=== PATIENT | male | born 1940 | race Caucasian/White ===

== ENCOUNTER 2017-03-04 16:07 | Emergency (ER) | payer MEDICARE ==
[2017-03-04] MEDS ORDERED: SODIUM CHLORIDE 0.9% 500 ML IV STA (17:02)
[2017-03-04] MEDS ORDERED: SODIUM CHLORIDE 0.9% 1,000 ML IV STA (17:02)
[2017-03-04] MEDS ORDERED: ACETAMINOPHEN IV (For NPO) 1,000 MG in EMPTY BAG 1 BAG IVPB STA (17:03)
[2017-03-04] MEDS ORDERED: cefTRIAXone 2,000 MG in SODIUM CHLORIDE 0.9% 100 ML IVPB STA (17:03)
[2017-03-04] MEDS ORDERED: KETOROLAC 30 MG/ML 1 ML VIAL IVP STA (17:03)
--- NOTE | 2017-03-04 17:04 | ED ---
General Adult HPI - General Chief complaint: Urogenital Stated complaint: Back Pain Time Seen by Provider: 03/04/17 16:59 Source: patient, RN notes reviewed, old records reviewed Mode of arrival: wheelchair - History of Present Illness Initial comments: This is a 76-year-old male who ER for evaluation postop fever. Patient recently had a bladder procedure for prostate cancer. Patient has had fever starting yesterday getting worse and today with back pain. The patient denies dysuria, denies abdominal pain. No nausea vomiting. No modifying factors for symptoms. - Related Data Home Medications Medication Instructions Recorded Confirmed Acetaminophen [Tylenol] 1,000 tab PO DAILY PRN 03/04/17 03/04/17 Alfuzosin HCl [Alfuzosin HCl ER] 10 mg PO DAILY 03/04/17 03/04/17 Aspirin [Adult Low Dose Aspirin EC] 81 mg PO DAILY 03/04/17 03/04/17 Atorvastatin [Lipitor] 40 mg PO DAILY 03/04/17 03/04/17 Carisoprodol [Soma] 350 mg PO DAILY PRN 03/04/17 03/04/17 Fluticasone/Salmeterol [Advair 1 inhalation PO RT-BID 03/04/17 03/04/17 250-50 Diskus] Magnesium Oxide [Magnesium] 250 mg PO DAILY 03/04/17 03/04/17 Naproxen Sodium [Aleve] 440 mg PO BID PRN 03/04/17 03/04/17 Pseudoephedrine HCl [Sudafed] 60 mg PO DAILY PRN 03/04/17 03/04/17 Turmeric-Curcumin 500mg 1 tab PO DAILY 03/04/17 03/04/17 Vits A,C,E/Lutein/Minerals 1 tab PO DAILY 03/04/17 03/04/17 [Ocuvite with Lutein Tablet] Previous Rx's Medication Instructions Recorded HYDROcodone/APAP 5-325MG [[place] 1 tab PO Q6HR PRN #20 tab 03/04/17 5-325] Ibuprofen [Motrin] 600 mg PO Q6HR PRN #30 tab 03/04/17 Allergies Allergy/AdvReac Type Severity Reaction Status Date / Time No Known Allergies Allergy Verified 03/04/17 17:42 Review of Systems ROS Statement: Those systems with pertinent positive or pertinent negative responses have been documented in the HPI. ROS Other: All systems not noted in ROS Statement are negative. Past Medical History Past Medical History: Asthma Additional Past Medical History / Comment(s): bladder cx, COPD, History of Any Multi-Drug Resistant Organisms: None Reported Additional Past Surgical History / Comment(s): carpal tunnel bilateral hands, Biopsy of bladder in january 2017 Past Psychological History: No Psychological Hx Reported Smoking Status: Never smoker Past Alcohol Use History: Occasional Past Drug Use History: None Reported General Exam General appearance: alert, in no apparent distress Head exam: Present: atraumatic, normocephalic, normal inspection Eye exam: Present: normal appearance, PERRL, EOMI. Absent: scleral icterus, conjunctival injection, periorbital swelling ENT exam: Present: normal exam, mucous membranes moist Neck exam: Present: normal inspection. Absent: tenderness, meningismus, lymphadenopathy Respiratory exam: Present: normal lung sounds bilaterally. Absent: respiratory distress, wheezes, rales, rhonchi, stridor Cardiovascular Exam: Present: regular rate, normal rhythm, normal heart sounds. Absent: systolic murmur, diastolic murmur, rubs, gallop, clicks GI/Abdominal exam: Present: soft, normal bowel sounds. Absent: distended, tenderness, guarding, rebound, rigid Extremities exam: Present: normal inspection, full ROM, normal capillary refill. Absent: tenderness, pedal edema, joint swelling, calf tenderness Back exam: Present: normal inspection Neurological exam: Present: alert, oriented X3, CN II-XII intact Psychiatric exam: Present: normal affect, normal mood Skin exam: Present: warm, dry, intact, normal color. Absent: rash Course Vital Signs 03/04/17 03/04/17 03/04/17 16:11 19:28 19:56 Temperature 101.9 F H 99.0 F 98.9 F Pulse Rate 77 77 76 Respiratory 20 18 20 Rate Blood Pressure 137/67 114/56 132/58 O2 Sat by Pulse 100 95 96 Oximetry - Reevaluation(s) Reevaluation #1: 03/04/17 20:[address] Shepard for urology, fever is normal for this procedure, okay for discharge Medical Decision Making - Medical Decision Making Started primarily ER for evaluation of fever, postprocedure fever, urine negative for infection patient can be discharged to - Lab Data Result diagrams: 03/04/17 17:25 06/04/17 17:25 Lab Results 03/04/17 03/04/17 03/04/17 Range/Units 17:25 17:25 17:25 WBC 14.2 H (3.8-10.6) k/uL RBC 4.67 (4.30-5.90) m/uL Hgb 14.3 (13.0-17.5) gm/dL Hct 43.3 (39.0-53.0) % MCV 92.9 (80.0-100.0) fL MCH 30.7 (25.0-35.0) pg MCHC 33.0 (31.0-37.0) g/dL RDW 13.2 (11.5-15.5) % Plt Count 222 (150-450) k/uL Neutrophils % 78 % Lymphocytes % 10 % Monocytes % 7 % Eosinophils % 1 % Basophils % 1 % Neutrophils # 11.1 H (1.3-7.7) k/uL Lymphocytes # 1.4 (1.0-4.8) k/uL Monocytes # 1.0 (0-1.0) k/uL Eosinophils # 0.2 (0-0.7) k/uL Basophils # 0.1 (0-0.2) k/uL PT (9.0-12.0) sec INR (<1.1) APTT (22.0-30.0) sec Sodium 142 (137-145) mmol/L Potassium 4.3 (3.5-5.1) mmol/L Chloride 107 (98-107) mmol/L Carbon Dioxide 26 (22-30) mmol/L Anion Gap 9 mmol/L BUN 18 (9-20) mg/dL Creatinine 0.67 (0.66-1.25) mg/dL Est GFR (MDRD) Af Amer >60 (>60 ml/min/1.73 sqM) Est GFR (MDRD) Non-Af >60 (>60 ml/min/1.73 sqM) Glucose 104 H (74-99) mg/dL Plasma Lactic Acid Neto (0.7-2.0) mmol/L Calcium 9.0 (8.4-10.2) mg/dL Phosphorus 2.5 (2.5-4.5) mg/dL Magnesium 1.9 (1.6-2.3) mg/dL Total Bilirubin 0.9 (0.2-1.3) mg/dL AST 25 (17-59) U/L ALT 23 (21-72) U/L Alkaline Phosphatase 124 (38-126) U/L Total Creatine Kinase 66 (55-170) U/L CK-MB (CK-2) 0.3 (0.0-2.4) ng/mL CK-MB (CK-2) Rel Index 0.5 Troponin I <0.012 (0.000-0.034) ng/mL Total Protein 7.0 (6.3-8.2) g/dL Albumin 3.8 (3.5-5.0) g/dL Urine Color Urine Appearance (Clear) Urine pH (5.0-8.0) Ur Specific [place] (1.001-1.035) Urine Protein (Negative) Urine Glucose (UA) (Negative) Urine Ketones (Negative) Urine Blood (Negative) Urine Nitrite (Negative) Urine Bilirubin (Negative) Urine Urobilinogen (<2.0) mg/dL Ur Leukocyte Esterase (Negative) 03/04/17 03/04/17 03/04/17 Range/Units 17:25 17:25 17:45 WBC (3.8-10.6) k/uL RBC (4.30-5.90) m/uL Hgb (13.0-17.5) gm/dL Hct (39.0-53.0) % MCV (80.0-100.0) fL MCH (25.0-35.0) pg MCHC (31.0-37.0) g/dL RDW (11.5-15.5) % Plt Count (150-450) k/uL Neutrophils % % Lymphocytes % % Monocytes % % Eosinophils % % Basophils % % Neutrophils # (1.3-7.7) k/uL Lymphocytes # (1.0-4.8) k/uL Monocytes # (0-1.0) k/uL Eosinophils # (0-0.7) k/uL Basophils # (0-0.2) k/uL PT 10.5 (9.0-12.0) sec INR 1.0 (<1.1) APTT 24.1 (22.0-30.0) sec Sodium (137-145) mmol/L Potassium (3.5-5.1) mmol/L Chloride (98-107) mmol/L Carbon Dioxide (22-30) mmol/L Anion Gap mmol/L BUN (9-20) mg/dL Creatinine (0.66-1.25) mg/dL Est GFR (MDRD) Af Amer (>60 ml/min/1.73 sqM) Est GFR (MDRD) Non-Af (>60 ml/min/1.73 sqM) Glucose (74-99) mg/dL Plasma Lactic Acid Neto 1.6 (0.7-2.0) mmol/L Calcium (8.4-10.2) mg/dL Phosphorus (2.5-4.5) mg/dL Magnesium (1.6-2.3) mg/dL Total Bilirubin (0.2-1.3) mg/dL AST (17-59) U/L ALT (21-72) U/L Alkaline Phosphatase (38-126) U/L Total Creatine Kinase (55-170) U/L CK-MB (CK-2) (0.0-2.4) ng/mL CK-MB (CK-2) Rel Index Troponin I (0.000-0.034) ng/mL Total Protein (6.3-8.2) g/dL Albumin (3.5-5.0) g/dL Urine Color Yellow Urine Appearance Clear (Clear) Urine pH 5.5 (5.0-8.0) Ur Specific [place] 1.016 (1.001-1.035) Urine Protein Negative (Negative) Urine Glucose (UA) Negative (Negative) Urine Ketones Negative (Negative) Urine Blood Negative (Negative) Urine Nitrite Negative (Negative) Urine Bilirubin Negative (Negative) Urine Urobilinogen <2.0 (<2.0) mg/dL Ur Leukocyte Esterase Negative (Negative) Disposition Clinical Impression: Fever Disposition: HOME SELF-CARE Condition: Good Instructions: Fever in Adults (ED) Prescriptions: HYDROcodone/APAP 5-325MG [[place] 5-325] 1 tab PO Q6HR PRN #20 tab PRN Reason: Pain Ibuprofen [Motrin] 600 mg PO Q6HR PRN #30 tab PRN Reason: Fever Referrals: Malcolm Her MD [Primary Care Provider] - 1-2 days
[2017-03-04 17:39] LABS: Basophils # (A) 0.1 k/uL (0-0.2); Basophils % (A) 1 %; CHCM 33.5; Eosinophils # (A) 0.2 k/uL (0-0.7); Eosinophils % (A) 1 %; HCT 43.3 % (39.0-53.0); HDW 2.84; HGB 14.3 gm/dL (13.0-17.5); Luc # (Auto) 0.47; Luc % (Auto) 3; Lymphocytes # (A) 1.4 k/uL (1.0-4.8); Lymphocytes % (A) 10 %; MCH 30.7 pg (25.0-35.0); MCV 92.9 fL (80.0-100.0); Mean Platelet Volume 6.8; Monocytes % (A) 7 %; Neutrophils # (A) 11.1 k/uL (1.3-7.7); Neutrophils % (A) 78 %; RBC 4.67 m/uL (4.30-5.90); RDW 13.2 % (11.5-15.5); WBC 14.2 k/uL (3.8-10.6); WBC (Perox) 13.37
[2017-03-04 17:47] LABS: Partial Thromboplastin Time 24.1 sec (22.0-30.0); Prothrombin Time 10.5 sec (9.0-12.0)
[2017-03-04 18:01] LABS: Appearance,Urine Clear (Clear); Bilirubin,Urine Negative (Negative); Glucose,Urine (UA) Negative (Negative); Ketones,Urine Negative (Negative); Leukocyte Esterase,Urine Negative (Negative); Nitrite,Urine Negative (Negative); PH, Urine 5.5 (5.0-8.0); Protein,Urine Negative (Negative); Specific Gravity,Urine 1.016 (1.001-1.035); UA Billing (MACRO vs. MICRO) CHEM; Urobilinogen,Urine <2.0 mg/dL (<2.0)
[2017-03-04 18:04] LABS: ALT 23 U/L (21-72); AST 25 U/L (17-59); Alkaline Phosphatase 124 U/L (38-126); Anion Gap 9 mmol/L; Blood Urea Nitrogen 18 mg/dL (9-20); Carbon Dioxide 26 mmol/L (22-30); Chloride 107 mmol/L (98-107); Glucose 104 mg/dL (74-99); Magnesium 1.9 mg/dL (1.6-2.3); Non-African American GFR(MDRD) >60 (>60 ml/min/1.73 sqM); Phosphorous 2.5 mg/dL (2.5-4.5); Potassium 4.3 mmol/L (3.5-5.1); Sodium 142 mmol/L (137-145); Total Bilirubin 0.9 mg/dL (0.2-1.3)
[2017-03-04 18:11] LABS: Creatine Kinase 66 U/L (55-170)
[2017-03-04 18:22] LABS: Creatine Kinase MB 0.3 ng/mL (0.0-2.4); Troponin I <0.012 ng/mL (0.000-0.034)
[2017-03-04] MEDS ORDERED: MORPHINE SULFATE 4 MG/ML SYRINGE IVP STA (19:52)
[2017-03-04 19:57] VITALS: BP 132/58; PULSE 76; RESP 20; TEMP 98.9
== END 2017-03-04 20:30 | disposition home or self-care (01) ==
LOC: EC 16:07
DX: R50.9 Fever, unspecified (principal); J44.9 Chronic obstructive pulmonary disease, unspecified; J45.909 Unspecified asthma, uncomplicated; Z98.890 Other specified postprocedural states; Z85.46 Personal history of malignant neoplasm of prostate; Z79.51 Long term (current) use of inhaled steroids; Z79.82 Long term (current) use of aspirin; Z79.899 Other long term (current) drug therapy
CPT/HCPCS: 99284; 96365; 96375 ×3; 36415; 93005; 80053; 82550; 82553; 83605; 83735; 84100; 84484; 85025; 85610; 85730; 81003; 87040; 87086; J2270; J0696; J1885; J0131; 87077; 87186

== ENCOUNTER 2017-03-07 12:07 | Inpatient (IN) | payer MEDICARE ==
[2017-03-07] MEDS ORDERED: RX INFO: IV CONTRAST WAS GIVEN 1 EACH MISC MISCELLANE PRN (12:44)
[2017-03-07] MEDS ORDERED: IV VANCOMYCIN PER PHARMACY 1 EACH MISC MISCELLANE PRN (12:46)
[2017-03-07 13:03] VITALS: BMI 24.5
[2017-03-07] MEDS ORDERED: VANCOMYCIN 2,000 MG in SODIUM CHLORIDE 0.9% 500 ML IVPB ONE (14:00)
[2017-03-07] MEDS: HYDROcodone/APAP 5-325MG 1 EACH TAB PO PRN ×3 (14:09→22:43)
[2017-03-07] MEDS: IBUPROFEN 600 MG TAB PO PRN ×2 (14:16→22:44)
[2017-03-07 16:11] LABS: ALT 23 U/L (21-72); AST 23 U/L (17-59); Alkaline Phosphatase 102 U/L (38-126); Anion Gap 9 mmol/L; Blood Urea Nitrogen 19 mg/dL (9-20); Calcium 8.8 mg/dL (8.4-10.2); Carbon Dioxide 25 mmol/L (22-30); Chloride 109 mmol/L (98-107); Glucose 92 mg/dL (74-99); Non-African American GFR(MDRD) >60 (>60 ml/min/1.73 sqM); Sodium 143 mmol/L (137-145); Total Bilirubin 0.8 mg/dL (0.2-1.3); Total Protein 5.9 g/dL (6.3-8.2)
[2017-03-07 16:25] LABS: CH 30.8; CHCM 34.1; HCT 35.1 % (39.0-53.0); HDW 3.07; HGB 12.1 gm/dL (13.0-17.5); MCH 31.2 pg (25.0-35.0); MCHC 34.4 g/dL (31.0-37.0); MCV 90.8 fL (80.0-100.0); Mean Platelet Volume 6.3; RBC 3.87 m/uL (4.30-5.90); RDW 12.9 % (11.5-15.5); WBC 13.7 k/uL (3.8-10.6); WBC (Perox) 13.57
[2017-03-07 17:06] LABS: Add Differential Manual Differential
[2017-03-07] MEDS: IOHEXOL 350 MG/ML 25 ML BOTTLE (ORAL USE) PO PRN ×2 (17:11→18:03)
[2017-03-07 17:21] LABS: Nucleated Red Blood Cells 0 /100 WBC (0-0); Total Cells Counted 100
[2017-03-07 17:22] LABS: Manual Review Performed; RBC Morphology Normal
[2017-03-07] MEDS: AMPICILLIN-SULBACTAM 3 GM in SODIUM CHLORIDE 0.9% 100 ML IVPB SCH (17:36)
[2017-03-07] MEDS: HEPARIN SODIUM,PORCINE 5,000 UNIT/ML 1 ML VIAL SQ SCH (17:39)
--- NOTE | 2017-03-07 19:19 | CT ---
EXAMINATION TYPE: CT abdomen pelvis w con DATE OF EXAM: 03/07/2017 COMPARISON: 01/25/2017 HISTORY: Low back pain and fever. CT DLP: 1664.20 mGycm Automated exposure control for dose reduction was used. TECHNIQUE: Helical acquisition of images was performed from the lung bases through the pelvis. CONTRAST: Performed with Oral Contrast and with IV Contrast, patient injected with 100 mL of Omnipaque 300. FINDINGS: There is some mild atelectasis at the right lung base. There is no pleural effusion. Liver spleen pancreas appear normal. Bile ducts are not dilated. Gallbladder is borderline dilated an d measures 4.6 cm. There is no adrenal mass. Kidneys show satisfactory contrast opacification. There is no hydronephrosi s. Ureters are not dilated. Bladder distends smoothly. There is no sign of a pelvic mass. I see no in testinal wall thickening. There are no dilated loops. There is no sign of a bowel obstruction. Abdomi nal aorta is atheromatous. I see no bony destructive process. There are spondylotic changes in the [place] mbar spine from L2 to S1. There is significant facet arthropathy in the lower lumbar spine with spina l stenosis at L3-4. IMPRESSION: ATHEROSCLEROTIC VASCULAR DISEASE. SPINAL STENOSIS AT L3-4. THERE IS INCREASED ATELECTASIS AT THE RIGHT LUNG BASE COMPARED TO OLD EXAM. GALLBLADDER IS LARGER JEFFERY N OLD EXAM that RAISES THE POSSIBILITY OF CHOLECYSTITIS.
[2017-03-07] MEDS: SYMBICORT 80-4.5 MCG INHALER INHALATION SCH (19:22)
--- NOTE | 2017-03-07 19:25 | CT ---
EXAMINATION TYPE: CT lumbar spine wo/w con DATE OF EXAM: 03/07/2017 COMPARISON: NONE HISTORY: Low back pain and fever. CT DLP: 1664.20 mGycm Automated exposure control for dose reduction was used. CONTRAST: CT scan of the lumbar is performed without and with IV Contrast, patient injected with mL of Omnipaqu e 300. Findings There is a mid lumbar levoscoliosis. There is 1 cm lateral subluxation of L3 to the right of L4. Ther e is no lumbar paraspinal mass. There is severe narrowing of the L4-5 disc space. There is moderate n arrowing of L to 3 L3-4 disc spaces. There is multilevel hypertrophic lumbar facet arthropathy. There is no compression fracture. There is mild relative spinal stenosis due to facet arthropathy and liga mentum flavum thickening at 2 3. There is a moderate least severe spinal stenosis at L3-4 due to sign ificant right-sided facet arthropathy. There is moderate lateral recess stenosis due to symmetric facet arthropathy at L4-5. The sacroiliac joints are intact. I see no focal bone destruction. IMPRESSION: Multilevel spondylosis and subluxation deformity seen at L3-4. There is significant L3-4 lumbar spina l stenosis. No compression fracture.
[2017-03-07 19:30] LABS: C Reactive Protein 127.1 mg/L (<10.0)
[2017-03-07] MEDS: CYCLOBENZAPRINE 5 MG TAB PO PRN (20:47)
[2017-03-07] MEDS: SENNOSIDES-DOCUSATE SODIUM 1 EACH TAB PO SCH (22:44)
[2017-03-08] MEDS ORDERED: VANCOMYCIN 1,500 MG in SODIUM CHLORIDE 0.9% 250 ML IVPB SCH ×2
[2017-03-08] MEDS: HEPARIN SODIUM,PORCINE 5,000 UNIT/ML 1 ML VIAL SQ SCH ×3 (00:14→15:24)
[2017-03-08] MEDS: AMPICILLIN-SULBACTAM 3 GM in SODIUM CHLORIDE 0.9% 100 ML IVPB SCH ×4 (00:15→18:00)
[2017-03-08] MEDS: ACETAMINOPHEN TAB 500 MG TAB PO PRN (00:25)
[2017-03-08] MEDS: HYDROcodone/APAP 5-325MG 1 EACH TAB PO PRN ×4 (06:37→18:01)
[2017-03-08] MEDS: TAMSULOSIN 0.4 MG CAP.ER.24H PO SCH (07:11)
[2017-03-08] MEDS: IBUPROFEN 600 MG TAB PO PRN ×3 (07:11→20:24)
[2017-03-08] MEDS: SENNOSIDES-DOCUSATE SODIUM 1 EACH TAB PO SCH (07:11)
[2017-03-08] MEDS: PANTOPRAZOLE 40 MG TABLET PO SCH (07:11)
--- NOTE | 2017-03-08 07:44 | HP ---
DATE OF ADMISSION: 03/07/2017 CHIEF COMPLAINT: Back pain. HISTORY OF PRESENT ILLNESS: This is a 76-year-old gentleman who was seen in the office yesterday for a follow-up from the emergency room. The patient had been seen in the emergency room on 03/04/2017 with complaint of significant back pain of one days' duration. No injury or trauma or any significant associated symptoms. He did have a temperature of 101 at the time. The patient had recently undergone intravascular BCG treatment for newly diagnosed carcinoma of the bladder. The patient's urine was unremarkable. The patient had mildly elevated white count of 14,000. The patient had a blood culture drawn at the time. The blood culture did come back positive. The patient, at the time of evaluation did not look sick at all except for the back pain. The patient had no specific bony tenderness and no CVA tenderness. His abdomen was soft on evaluation yesterday. The patient did complain of some edema of the lower legs. Otherwise, no other symptoms. In view of above and patient has not had any further fever. In view of above, the patient was sent in for repeat 2 blood cultures. The patient's two blood cultures were reported positive within 12 hours. In view of this, patient is admitted to the hospital for IV antibiotics. He was started on amoxicillin yesterday for enterococcus in the blood. At the time of evaluation on this admission, the patient looks fairly comfortable and not sick and afebrile. Temperature 97.2, pulse 78, respirations 16, blood pressure is 142/74. However, the patient's pain in the back is under fair control with the use of the above medications. The patient denies any other symptoms of chest pain, shortness of breath, cough. No nausea, vomiting. Mild abdominal pain left lower quadrant. He has not had a bowel movement. The patient denies any dysuria or hematuria. The patient back 02/05/2017 had a positive urine for enterococcus for which he was treated with the urologist. The patient prior to that was referred to the urologist for microscopic position hematuria. On evaluation, the patient's CAT scan was unremarkable and ultrasounds unremarkable. The patient did have cystoscopy which he was noted to have spot of malignancy. The patient in view of this was treated with the BCG infusion. Past medical history is primarily significant for history of hyperlipidemia, chronic obstructive lung disease, previous history of nephrolithiasis and age-related macular degeneration with no sequelae. PERSONAL HISTORY: The patient is an ex-smoker. Used to smoke a pack per day for 30 years. Alcohol about one glass of wine twice a week. SOCIAL HISTORY: Patient is and lives with her spouse. He is an industrial design engineer. He does exercise on a regular basis. PAST SURGICAL HISTORY: Significant tonsils and adenoids, bilateral carpal tunnel releases, vasectomy and bilateral cataract surgery. FAMILY MEDICAL HISTORY: Father at the age of 62. He has a history of coronary artery disease and had history of CVA. Mother at the age of 78. She had COPD, CHF, mother living, age 66, with history of coronary artery disease diagnosed age 51. The patient has a daughter living, age 48 who has bipolar disorder. REVIEW OF SYSTEMS: NEURO: Denies any headaches, dizziness. No double vision, blurred vision. No symptoms of TIA, syncope, seizures. PSYCH: No anxiety, depression. CARDIAC: No chest pain, angina, palpitation. RESPIRATORY: Mild chronic cough. No hemoptysis. No shortness of breath. GI: No nausea, vomiting, mild left lower abdominal discomfort, left lower abdominal discomfort and constipation. : Denies symptoms of dysuria, hematuria, urgency, frequency. EXTREMITIES: Denies pain. Does have edema in lower extremities. CONSTITUTIONAL: Temperature and chills about 4 days ago but since then. Denies any weight gain, weight loss. MUSCULOSKELETAL: Lower back pain. Does say that every time he has any kind of infection, he does get significant lower back pain. PHYSICAL EXAMINATION: Pleasant gentleman, at present in no distress does not appear acutely ill. Temperature is 97.2, pulse 78, respirations 16, blood pressure 142/74, pulse ox of 98%. HEENT: Normocephalic. Pupils reactive. Oral cavity moist. Neck reveals no JVD, carotid bruits. No thyromegaly. CHEST EXAMINATION: Mildly increased AP diameter. With mild generalized decreased air flow, occasional rhonchi. CARDIAC: Distant heart sounds. S1, S2 with no gallops. Systolic murmur 2 out of 6 left sternal border. ABDOMEN: Soft, no palpable masses. Bowel sounds normal. No organomegaly. No abdominal bruits. No CVA tenderness. Left lower quadrant tenderness. EXTREMITIES: No tenderness. Does have some mild edema. Distal lower extremities. Neurologically awake, alert, oriented x3 with well-coordinated movements. Laboratory assessment: White count 13.7, hemoglobin 12.1, platelet count 242. Electrolytes are normal. Alkaline phosphatase is normal. C-reactive protein, high at 127, albumin 3.1, prealbumin 9. The patient had a CAT scan of the abdomen done which primarily reveals no significant changes. CT of the spine reveals no evidence of C-spine shows multilevel spondylosis and fluctuation of deformity seen at L3, 4 and 5. No significant L3-4 lumbar spinal stenosis and no compression fracture and sacroiliac joints were intact. There does not seem to be any significant inflammation of the discs. The blood culture reports were positive for Enterococcus faecalis. ASSESSMENT: 1. Enterococcus faecalis bacteremia. 2. Back pain. 3. Chronic obstructive pulmonary disease 4. Hyperlipidemia, on medical therapy. Chest x-ray films available to me at present. The patient's medications have included: 1. Atorvastatin 40 mg daily. 2. Aleve 220 mg 1 daily. 3. Breo 100/25 1 puff daily. 4. Ocuvite 1 tablet daily. 5. Aspirin 81 mg daily. PLAN: Continue present medical regimen. The patient will be started on vancomycin. The patient has been seen by ID. The patient has taken 2 doses amoxicillin yesterday. The patient will also have an echocardiogram to rule out any endocarditis. The patient's general condition discussed with the patient and spouse. Prognosis remains guarded. Continue the patient medications of [place] and Flexeril. Prognosis remains guarded.
--- NOTE | 2017-03-08 08:16 | XR ---
EXAMINATION TYPE: XR chest 2V DATE OF EXAM: 03/07/2017 COMPARISON: 04/25/[address] 03/11/2014. HISTORY: 76-year-old male with fever TECHNIQUE: Frontal and lateral views FINDINGS: Heart is normal size. Aorta and pulmonary vasculature within normal limits. Some slight increased asy mmetric density in the right upper lobe and patchy right basilar opacity. Strandy left basilar atelec tasis. Degenerative changes right glenoid humeral joint. Nodular density projecting at the right midl florencio seems to be larger as compared to 04/25/2012 but is suspected to have represented a bone island gi sravan CT findings on 03/11/2014. A follow-up CT is recommended given apparent enlargement and to exclude underlying pulmonary nodule. Calcified granuloma at the right cardiophrenic angle. IMPRESSION: 1. Some asymmetric hazy density right upper lobe. Unable to exclude early infiltrate. Additional patc hy atelectasis/infiltrate at the right base and strandy atelectasis at the left base. 2. Follow-up CT is recommended to exclude a new/enlarging pulmonary nodule at the right midlung. Cameronil e a small nodule was seen on the 2012 radiograph, the CT of 03/20/2014 suggests that it may have repre sented a bone island. The present nodule is larger.
[2017-03-08] MEDS: CYCLOBENZAPRINE 5 MG TAB PO PRN ×2 (08:24→23:09)
[2017-03-08] MEDS: SYMBICORT 80-4.5 MCG INHALER INHALATION SCH ×2 (09:26→19:59)
--- NOTE | 2017-03-08 11:16 | P.CONS ---
History of Present Illness - Reason for Consult Consult date: 03/08/17 Enterococcus bacteremia - History of Present Illness This is a 76-year-old male who was recently diagnosed with bladder cancer. He has recently undergone a cystoscopy and following that he was on Cipro which he completed for urinary tract infection prior to a bladder biopsy. Following that patient states he was feeling well and did not have any symptoms of a urinary tract infection. He then started treatment with intravesicular BCG administration for treatment of bladder cancer with Dr. Woods. His treatment was last and patient states he has had some soreness since then but no real pain but started to run a fever on Sunday and was feeling sore all over. On Sunday, his temperature was [address] Mcnulty office and went into [facility] emergency center for evaluation. He had leukocytosis of 14.2 and his urinalysis was clear with nitrate and leukoesterase negative. Patient was provided with a liter of IV fluids, IV Tylenol, IV morphine and 1 dose of ceftriaxone IVPB. His fever had resolved and he was feeling improvement. He was discharged home to continue [place] and Motrin for pain and fever. Patient continued to have back pain and was not feeling well in general. On Sunday, he received a call from [facility] that a test was positive which he thought was his urine but it turned out to be a blood culture. He continued to have fever and was having difficulty sleeping due to pain in his hips in the center of his back. He called Dr. Woods on Sunday and also called Dr. Her who saw him in the office. He was then sent over to [facility] as a direct admission for enterococcus bacteremia. Patient was given 1 dose of vancomycin which is been changed to Unasyn. His temperature max has been 100.9 with leukocytosis of 13.7. CRP 127 and 3 albumin 9. Repeat blood culture has status received. Review of Systems All systems: negative Constitutional: Reports chills, Reports fatigue, Reports fever, Reports malaise , Reports weakness Eyes: denies blurred vision, denies pain Ears, nose, mouth and throat: Denies headache, Denies sore throat Cardiovascular: Denies chest pain, Denies shortness of breath Respiratory: Denies cough Gastrointestinal: Reports abdominal pain, Denies diarrhea, Denies nausea, Denies vomiting Genitourinary: Reports dysuria Musculoskeletal: Reports low back pain, Denies myalgias Integumentary: Denies pruritus, Denies rash Neurological: Denies numbness, Denies weakness Psychiatric: Denies anxiety, Denies depression Endocrine: Denies fatigue, Denies weight change Past Medical History Past Medical History: Asthma Additional Past Medical History / Comment(s): bladder cx, COPD, arthritis, seasonal ALLERGIES History of Any Multi-Drug Resistant Organisms: None Reported Past Surgical History: Tonsillectomy Additional Past Surgical History / Comment(s): carpal tunnel bilateral hands, cystoscopy, Biopsy of bladder in january 2017, intravesicular BCG administration for bladder cancer, bilateral cataract removal and intraocular lens implants Past Anesthesia/Blood Transfusion Reactions: No Reported Reaction Past Psychological History: No Psychological Hx Reported Smoking Status: Former smoker Past Alcohol Use History: Occasional Additional Past Alcohol Use History / Comment(s): Patient was a smoker one pack per day for 40-50 years. He lives at home with his and cat. 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 Past Drug Use History: None Reported - Past Family History Father Family Medical History: CVA/TIA, Myocardial Infarction ([place]) Mother Family Medical History: Myocardial Infarction ([place]) Medications and Allergies Home Medications Medication Instructions Recorded Confirmed Type Acetaminophen [Tylenol] 1,000 mg PO DAILY PRN 03/04/17 03/07/17 History Alfuzosin HCl [Alfuzosin HCl ER] 10 mg PO DAILY 03/04/17 03/07/17 History Aspirin [Adult Low Dose Aspirin EC] 81 mg PO DAILY 03/04/17 03/07/17 History Atorvastatin [Lipitor] 40 mg PO DAILY 03/04/17 03/07/17 History Carisoprodol [Soma] 350 mg PO DAILY PRN 03/04/17 03/07/17 History Fluticasone/Salmeterol [Advair 1 inhalation PO RT-BID 03/04/17 03/07/17 History 250-50 Diskus] Magnesium Oxide [Magnesium] 250 mg PO DAILY 03/04/17 03/07/17 History Naproxen Sodium [Aleve] 440 mg PO BID PRN 03/04/17 03/07/17 History Pseudoephedrine HCl [Sudafed] 60 mg PO DAILY PRN 03/04/17 03/07/17 History Turmeric-Curcumin 500mg 1 tab PO DAILY 03/04/17 03/07/17 History Vits A,C,E/Lutein/Minerals 1 tab PO DAILY 03/04/17 03/07/17 History [Ocuvite with Lutein Tablet] Allergies Allergy/AdvReac Type Severity Reaction Status Date / Time No Known Allergies Allergy Verified 03/07/17 12:38 Physical Exam Vitals: Vital Signs Temp Pulse Resp BP Pulse Ox 03/08/17 07:00 98.8 F 75 16 120/70 97 03/07/17 23:00 100.9 F H 87 16 125/60 92 L 03/07/17 20:18 97.2 F L 78 16 142/74 98 Intake and Output 03/07/17 03/08/17 03/08/17 22:59 06:59 14:59 Intake Total 100 Output Total 50 Balance -50 100 Intake: IV 100 Ampicillin-Sulbactam 3 gm 100 In Sodium Chloride 0.9% 100 ml @ 100 mls/hr IVPB Q6HR [facility] Rx#:[id number] Output: Urine 50 Other: Voiding Method Urinal # Voids 1 3 Weight 77.72 kg Gen: This is a 76-year-old male. He is sitting up in bed and appears to be in no acute distress. He does state that he is uncomfortable due to his back pain. HEENT: Head is atraumatic, normocephalic. Pupils equal, round. Sclerae is anicteric. Oral mucous membranes are moist. No thrush noted. Dentition is in good order. NECK: Supple. No JVD. No lymphadenopathy. No thyromegaly. LUNGS: Clear to auscultation. No wheezes or rhonchi. No intercostal retractions. HEART: Regular rate and rhythm. Systolic murmur. ABDOMEN: Soft. Bowel sounds are present. No masses. No tenderness. EXTREMITIES: No pedal edema. No calf tenderness. NEUROLOGICAL: Patient is awake, alert and oriented x3. Cranial nerves 2 through 12 are grossly intact. Results Results: Laboratory Results WBC 13.7 k/uL (3.8-10.6) H 03/07/17 15:47 RBC 3.87 m/uL (4.30-5.90) L 03/07/17 15:47 Hgb 12.1 gm/dL (13.0-17.5) L 03/07/17 15:47 Hct 35.1 % (39.0-53.0) L 03/07/17 15:47 MCV 90.8 fL (80.0-100.0) 03/07/17 15:47 MCH 31.2 pg (25.0-35.0) 03/07/17 15:47 MCHC 34.4 g/dL (31.0-37.0) 03/07/17 15:47 RDW 12.9 % (11.5-15.5) 03/07/17 15:47 Plt Count 242 k/uL (150-450) 03/07/17 15:47 Neutrophils % (Manual) 73.0 % 03/07/17 15:47 Lymphocytes % (Manual) 13.0 % 03/07/17 15:47 Monocytes % (Manual) 13.0 % 03/07/17 15:47 Eosinophils % (Manual) 1.0 % 03/07/17 15:47 Neutrophils # (Manual) 10.0 k/uL (1.3-7.7) H 03/07/17 15:47 Lymphocytes # (Manual) 1.8 k/uL (1.0-4.8) 03/07/17 15:47 Monocytes # (Manual) 1.8 k/uL (0-1.0) H 03/07/17 15:47 Eosinophils # (Manual) 0.1 k/uL (0-0.7) 03/07/17 15:47 Nucleated RBCs 0 /100 WBC (0-0) 03/07/17 15:47 Manual Slide Review Performed 03/07/17 15:47 RBC Morphology Normal 03/07/17 15:47 Sodium 143 mmol/L (137-145) 03/07/17 15:47 Potassium 4.0 mmol/L (3.5-5.1) 03/07/17 15:47 Chloride 109 mmol/L (98-107) H 03/07/17 15:47 Carbon Dioxide 25 mmol/L (22-30) 03/07/17 15:47 Anion Gap 9 mmol/L 03/07/17 15:47 BUN 19 mg/dL (9-20) 03/07/17 15:47 Creatinine 0.70 mg/dL (0.66-1.25) 03/07/17 15:47 Est GFR (MDRD) Af Amer >60 (>60 ml/min/1.73 sqM) 03/07/17 15:47 Est GFR (MDRD) Non-Af >60 (>60 ml/min/1.73 sqM) 03/07/17 15:47 Glucose 92 mg/dL (74-99) 03/07/17 15:47 Calcium 8.8 mg/dL (8.4-10.2) 03/07/17 15:47 Total Bilirubin 0.8 mg/dL (0.2-1.3) 03/07/17 15:47 AST 23 U/L (17-59) 03/07/17 15:47 ALT 23 U/L (21-72) 03/07/17 15:47 Alkaline Phosphatase 102 U/L (38-126) 03/07/17 15:47 C-Reactive Protein 127.1 mg/L (<10.0) H 03/07/17 17:04 Total Protein 5.9 g/dL (6.3-8.2) L 03/07/17 15:47 Albumin 3.1 g/dL (3.5-5.0) L 03/07/17 15:47 Prealbumin 9 mg/dL (18-36) L 03/07/17 17:04 CBC & Chem 7: 03/07/17 15:47 03/07/17 15:47 Labs: Abnormal Lab Results - Last 24 Hours (Table) 03/07/17 03/07/17 03/07/17 Range/Units 15:47 15:47 17:04 WBC 13.7 H (3.8-10.6) k/uL RBC 3.87 L (4.30-5.90) m/uL Hgb 12.1 L (13.0-17.5) gm/dL Hct 35.1 L (39.0-53.0) % Neutrophils # (Manual) 10.0 H (1.3-7.7) k/uL Monocytes # (Manual) 1.8 H (0-1.0) k/uL Chloride 109 H (98-107) mmol/L C-Reactive Protein 127.1 H (<10.0) mg/L Total Protein 5.9 L (6.3-8.2) g/dL Albumin 3.1 L (3.5-5.0) g/dL Prealbumin 9 L (18-36) mg/dL Assessment and Plan Plan: This is a 76-year-old male who is recently diagnosed with bladder cancer status post intravesicular PSG treatment and subsequently developed fever and bacteremia most likely secondary to recent bladder procedures. Patient is currently on Unasyn which will be continued. Repeat blood culture has been obtained. Once blood cultures are clear, patient will be set up for PICC line and home IV antibiotics. Continue supportive care. The above dictated assessment and findings were discussed with Dr. Mccallum. The impression and plan of care have been directed as dictated. Mikayla Mims nurse practitioner acting as scribe for Dr. Mccallum.
--- NOTE | 2017-03-08 21:23 | P.CON ---
Consult Note - . Consult date: 03/08/17 Assessment/Plan:: This is a 76-year-old male who was recently diagnosed with bladder cancer. He has recently undergone a cystoscopy and following that he was on Cipro which he completed for urinary tract infection prior to a bladder biopsy. Following that patient states he was feeling well and did not have any symptoms of a urinary tract infection. He then started treatment with intravesicular BCG administration for treatment of bladder cancer with Dr. Woods. His treatment was last and patient states he has had some soreness since then but no real pain but started to run a fever on Sunday and was feeling sore all over. On Sunday, his temperature was [address] Mcnulty office and went into [facility] emergency center for evaluation. He had leukocytosis of 14.2 and his urinalysis was clear with nitrate and leukoesterase negative. Patient was provided with a liter of IV fluids, IV Tylenol, IV morphine and 1 dose of ceftriaxone IVPB. His fever had resolved and he was feeling improvement. He was discharged home to continue [place] and Motrin for pain and fever. Patient continued to have back pain and was not feeling well in general. On Sunday, he received a call from [facility] that a test was positive which he thought was his urine but it turned out to be a blood culture. He continued to have fever and was having difficulty sleeping due to pain in his hips in the center of his back. He called Dr. Woods on Sunday and also called Dr. Her who saw him in the office. He was then sent over to [facility] as a direct admission for enterococcus bacteremia. Patient was given 1 dose of vancomycin which is been changed to Unasyn. His temperature max has been 100.9 with leukocytosis of 13.7. CRP 127 and 3 albumin 9. Repeat blood culture has status received. Please see the consult note is dictated by nurse practitioner Mrs. Mikayla Mims. This pleasant elderly gentleman has a history of the bladder tumor status post manipulation. Is now having significant flank pain bilaterally. Is evidence of positive blood cultures. The computed tomography scan shows some spinal stenosis but no hydronephrosis or renal masses being seen no evidence of any perinephric abscess or lesions. At this time enterococcus bacteremia will be treated with IV antibiotic therapy with ampicillin sulbactam. We'll plan two- week course of therapy once his bacteremia has cleared. We'll determine if this can be done at home. The patient understands that the bacteremia is of significance with his history and antibiotic therapy she also help treat the source which is the urinary system. Was negative blood cultures are noted PICC line will be placed and will be discharged home. Potentially in the next few days.
[2017-03-08] MEDS ORDERED: HYDROcodone/APAP 5-325MG 1 EACH TAB PO PRN (23:00)
[2017-03-09] MEDS: AMPICILLIN-SULBACTAM 3 GM in SODIUM CHLORIDE 0.9% 100 ML IVPB SCH ×5 (00:29→23:19)
[2017-03-09] MEDS: HYDROcodone/APAP 5-325MG 1 EACH TAB PO SCH ×7 (00:29→23:19)
[2017-03-09] MEDS: HEPARIN SODIUM,PORCINE 5,000 UNIT/ML 1 ML VIAL SQ SCH ×4 (00:30→23:19)
[2017-03-09] MEDS: MAGNESIUM HYDROXIDE 2,400 MG/10 ML CUP PO PRN ×2 (04:30→10:04)
[2017-03-09] MEDS: IBUPROFEN 600 MG TAB PO PRN ×4 (04:32→23:38)
[2017-03-09 07:22] LABS: CH 30.5; CHCM 33.6; HCT 34.6 % (39.0-53.0); HDW 2.88; HGB 11.3 gm/dL (13.0-17.5); MCH 29.8 pg (25.0-35.0); MCHC 32.6 g/dL (31.0-37.0); MCV 91.2 fL (80.0-100.0); Mean Platelet Volume 6.9; RBC 3.79 m/uL (4.30-5.90)
[2017-03-09] MEDS: SYMBICORT 80-4.5 MCG INHALER INHALATION SCH ×2 (07:29→18:59)
[2017-03-09] MEDS: TAMSULOSIN 0.4 MG CAP.ER.24H PO SCH (08:23)
[2017-03-09] MEDS: HYDROcodone/APAP 5-325MG 1 EACH TAB PO PRN (08:23)
[2017-03-09] MEDS: SENNOSIDES-DOCUSATE SODIUM 1 EACH TAB PO SCH (08:23)
[2017-03-09] MEDS: PANTOPRAZOLE 40 MG TABLET PO SCH (08:23)
[2017-03-09] MEDS: CYCLOBENZAPRINE 5 MG TAB PO PRN ×3 (09:59→23:38)
--- NOTE | 2017-03-09 10:58 | ECHOF ---
Referral Reason:bacteremia MEASUREMENTS -------- HEIGHT: 152.4 cm WEIGHT: 77.6 kg BP: RVIDd: 2.6 cm (< 3.3) IVSd: 1.0 cm (0.6 - 1.1) LVIDd: 4.3 cm (3.9 - 5.3) LVPWd: 1.5 cm (0.6 - 1.1) IVSs: 1.2 cm LVIDs: 3.5 cm LVPWs: 1.5 cm LA Diam: 3.2 cm (2.7 - 3.8) Ao Diam: 3.3 cm (2.0 - 3.7) AV Cusp: 1.8 cm (1.5 - 2.6) LA Diam: 2.9 cm (2.7 - 3.8) MV EXCURSION: 21.518 mm (> 18.000) MV EF SLOPE: 122 mm/s (70 - 150) EPSS: 0.5 cm MV E Rudy: 0.80 m/s MV DecT: 213 ms MV A Rudy: 0.73 m/s MV E/A Ratio: 1.09 RAP: 5.00 mmHg RVSP: 16.89 mmHg FINDINGS -------- Sinus rhythm. This was a technically adequate study. Pt. not able to turn due to pain. There is mild concentric left ventricular hypertrophy. Overall left ventricular systolic function is low-normal with, an EF between 50 - 55 %. The right ventricle is normal in size. The left atrial size is normal. The right atrial size is normal. There is mild aortic valve sclerosis. There is no evidence of aortic regurgitation. Mild mitral annular calcification present. Mild mitral regurgitation is present. Mild tricuspid regurgitation present. There is no evidence of pulmonary hypertension. The right ventricular systolic pressure, as measured by Doppler, is 16.89mmHg. There is no pulmonic regurgitation present. The aortic root size is normal. There is no pericardial effusion. CONCLUSIONS -------- 1. Pt. not able to turn due to pain. 2. There is no pulmonic regurgitation present. 3. There is no pericardial effusion. 4. There is mild concentric left ventricular hypertrophy. 5. Overall left ventricular systolic function is low-normal with, an EF between 50 - 55 %. 6. There is mild aortic valve sclerosis. 7. Mild mitral annular calcification present. 8. Mild mitral regurgitation is present. 9. Mild tricuspid regurgitation present. 10. There is no evidence of pulmonary hypertension. 11. The right ventricular systolic pressure, as measured by Doppler, is 16.89mmHg. [employer] HAND: Savannah Dumont RDCS
--- NOTE | 2017-03-09 13:28 | P.PN ---
Subjective Principal diagnosis: sepsis This is a 76-year-old male who was recently diagnosed with bladder cancer. He has recently undergone a cystoscopy and following that he was on Cipro which he completed for urinary tract infection prior to a bladder biopsy. Following that patient states he was feeling well and did not have any symptoms of a urinary tract infection. He then started treatment with intravesicular BCG administration for treatment of bladder cancer with Dr. Woods. His treatment was last and patient states he has had some soreness since then but no real pain but started to run a fever on Sunday and was feeling sore all over. On Sunday, his temperature was [address] Mcnulty office and went into [facility] emergency center for evaluation. He had leukocytosis of 14.2 and his urinalysis was clear with nitrate and leukoesterase negative. Patient was provided with a liter of IV fluids, IV Tylenol, IV morphine and 1 dose of ceftriaxone IVPB. His fever had resolved and he was feeling improvement. He was discharged home to continue [place] and Motrin for pain and fever. Patient continued to have back pain and was not feeling well in general. On Sunday, he received a call from [facility] that a test was positive which he thought was his urine but it turned out to be a blood culture. He continued to have fever and was having difficulty sleeping due to pain in his hips in the center of his back. He called Dr. Woods on Sunday and also called Dr. Her who saw him in the office. He was then sent over to [facility] as a direct admission for enterococcus bacteremia. Patient was given 1 dose of vancomycin which is been changed to Unasyn. His temperature max has been 100.9 with leukocytosis of 13.7. CRP 127 and 3 albumin 9. Repeat blood culture has status received. Doing well today. No new complaints. Pain is improving to his back. Able to get up and ambulate. Some constipation. Objective - Vital Signs Vital signs: Vital Signs Temp 98.5 F 03/09/17 07:00 Pulse 76 03/09/17 07:00 Resp 16 03/09/17 07:00 BP 133/67 03/09/17 07:00 Pulse Ox 94 L 03/09/17 07:00 Intake & Output 0603/09/17 03/09/17 18:59 06:59 18:59 Intake Total 200 100 200 Output Total 600 200 125 Balance -400 -100 75 Intake: IV 100 Ampicillin-Sulbactam 3 gm 100 In Sodium Chloride 0.9% 100 ml @ 100 mls/hr IVPB Q6HR [facility] Rx#:[id number] Intake, IV Titration 100 100 Amount Ampicillin-Sulbactam 3 gm 100 100 In Sodium Chloride 0.9% 100 ml @ 100 mls/hr IVPB Q6HR [facility] Rx#:[id number] Oral 200 Output: Urine 600 200 125 Other: Voiding Method Urinal Urinal # Voids 2 2 - Exam Gen: This is a 76-year-old male. He is sitting up in bed and appears to be in no acute distress. He does state that he is uncomfortable due to his back pain. HEENT: Head is atraumatic, normocephalic. Pupils equal, round. Sclerae is anicteric. Oral mucous membranes are moist. No thrush noted. Dentition is in good order. NECK: Supple. No JVD. No lymphadenopathy. No thyromegaly. LUNGS: Clear to auscultation. No wheezes or rhonchi. No intercostal retractions. HEART: Regular rate and rhythm. Systolic murmur. ABDOMEN: Soft. Bowel sounds are present. No masses. No tenderness. EXTREMITIES: No pedal edema. No calf tenderness. NEUROLOGICAL: Patient is awake, alert and oriented x3. Bilateral flank pain is just slightly improved today. - Labs CBC & Chem 7: 03/09/17 06:41 03/07/17 15:47 Labs: Abnormal Lab Results - Last 24 Hours (Table) 03/09/17 Range/Units 06:41 WBC 15.0 H (3.8-10.6) k/uL RBC 3.79 L (4.30-5.90) m/uL Hgb 11.3 L (13.0-17.5) gm/dL Hct 34.6 L (39.0-53.0) % Microbiology - Last 24 Hours (Table) 03/07/17 17:04 Blood Culture Gram Stain - Preliminary Blood Blood Culture - Preliminary Group D Enterococcus 03/07/17 17:04 Blood Culture - Preliminary Blood 03/07/17 17:31 Blood Culture - Preliminary Blood No Growth after 24 hours Laboratory Results WBC 15.0 k/uL (3.8-10.6) H 03/09/17 06:41 RBC 3.79 m/uL (4.30-5.90) L 03/09/17 06:41 Hgb 11.3 gm/dL (13.0-17.5) L 03/09/17 06:41 Hct 34.6 % (39.0-53.0) L 03/09/17 06:41 MCV 91.2 fL (80.0-100.0) 03/09/17 06:41 MCH 29.8 pg (25.0-35.0) 03/09/17 06:41 MCHC 32.6 g/dL (31.0-37.0) 03/09/17 06:41 RDW 13.0 % (11.5-15.5) 03/09/17 06:41 Plt Count 264 k/uL (150-450) 03/09/17 06:41 Neutrophils % (Manual) 73.0 % 03/07/17 15:47 Lymphocytes % (Manual) 13.0 % 03/07/17 15:47 Monocytes % (Manual) 13.0 % 03/07/17 15:47 Eosinophils % (Manual) 1.0 % 03/07/17 15:47 Neutrophils # (Manual) 10.0 k/uL (1.3-7.7) H 03/07/17 15:47 Lymphocytes # (Manual) 1.8 k/uL (1.0-4.8) 03/07/17 15:47 Monocytes # (Manual) 1.8 k/uL (0-1.0) H 03/07/17 15:47 Eosinophils # (Manual) 0.1 k/uL (0-0.7) 03/07/17 15:47 Nucleated RBCs 0 /100 WBC (0-0) 03/07/17 15:47 Manual Slide Review Performed 03/07/17 15:47 RBC Morphology Normal 03/07/17 15:47 Sodium 143 mmol/L (137-145) 03/07/17 15:47 Potassium 4.0 mmol/L (3.5-5.1) 03/07/17 15:47 Chloride 109 mmol/L (98-107) H 03/07/17 15:47 Carbon Dioxide 25 mmol/L (22-30) 03/07/17 15:47 Anion Gap 9 mmol/L 03/07/17 15:47 BUN 19 mg/dL (9-20) 03/07/17 15:47 Creatinine 0.70 mg/dL (0.66-1.25) 03/07/17 15:47 Est GFR (MDRD) Af Amer >60 (>60 ml/min/1.73 sqM) 03/07/17 15:47 Est GFR (MDRD) Non-Af >60 (>60 ml/min/1.73 sqM) 03/07/17 15:47 Glucose 92 mg/dL (74-99) 03/07/17 15:47 Calcium 8.8 mg/dL (8.4-10.2) 03/07/17 15:47 Total Bilirubin 0.8 mg/dL (0.2-1.3) 03/07/17 15:47 AST 23 U/L (17-59) 03/07/17 15:47 ALT 23 U/L (21-72) 03/07/17 15:47 Alkaline Phosphatase 102 U/L (38-126) 03/07/17 15:47 C-Reactive Protein 127.1 mg/L (<10.0) H 03/07/17 17:04 Total Protein 5.9 g/dL (6.3-8.2) L 03/07/17 15:47 Albumin 3.1 g/dL (3.5-5.0) L 03/07/17 15:47 Prealbumin 9 mg/dL (18-36) L 03/07/17 17:04 Microbiology 03/07/17 17:04 Blood Blood Culture Gram Stain - Preliminary 03/07/17 17:04 Blood Blood Culture - Preliminary Group D Enterococcus 03/07/17 17:04 Blood Blood Culture - Preliminary 03/07/17 17:31 Blood Blood Culture - Preliminary No Growth after 24 hours Assessment and Plan (1) Bacteremia due to Enterococcus Narrative/Plan: This is a 76-year-old male who is recently diagnosed with bladder cancer status post intravesicular PSG treatment and subsequently developed fever and bacteremia most likely secondary to recent bladder procedures. Patient now showing some improvement. His back pain is slightly improved. Not having significant fever and leukocytosis is stable to improved His prealbumin is low and these protein supplementation. Blood cultures at admission were positive for enterococcus. Follow blood cultures are process and pending. If all blood cultures are negative the may have a PICC line in Sunday and plan discharged home with home intravenous antibiotic therapy. If any further blood cultures within need echocardiogram and further evaluation. However with the patient showing his improvement this time would likely be able to progress with PICC line and discharge home Sunday this entire plan as gone over in great detail with the patient and his . They understand. Status: Acute
--- NOTE | 2017-03-09 14:54 | PN ---
CHIEF COMPLAINT: Re-evaluation. HISTORY OF PRESENT ILLNESS: This 76-year-old was admitted to the hospital with enterococcus bacteremia. The patient is doing fairly well; just a low-grade temperature yesterday. The patient today has had no temperature. The patient is on Unasyn as ordered by Dr. Mccallum. The patient is feeling well. He continues to have lower back pain. Denies any dysuria, hematuria. His edema in the lower extremities has improved. REVIEW OF SYSTEMS: NEURO: Denies any headaches, dizziness. PSYCH: No anxiety. CARDIAC: No chest pain, angina, palpitation. RESPIRATORY: Mild chronic cough. No hemoptysis. GI: No nausea, vomiting, abdominal pain ( ) diarrhea. No bowel movement. : No symptoms of dysuria, hematuria. EXTREMITIES: Denies pain. Some edema, which is improved. CONSTITUTIONAL: No fever or chills. PHYSICAL EXAMINATION: Pleasant gentleman in no distress. Vital signs revealed temperature 98.8, pulse 75, respiration 16, blood pressure 120/70, pulse ox 97% on room air. HEENT: Normocephalic. NECK: No JVD. Chest is clear to auscultation with generalized decreased air flow. CARDIAC: Distant heart sounds. S1, S2 with no gallops. Systolic murmur 2/6, left sternal border. ABDOMEN: Soft. No palpable masses. Bowel sounds normal. No organomegaly. No abdominal bruits. No CVA tenderness. Some tenderness in the lower back. EXTREMITIES: ( ) pain. No tenderness. Edema. NEUROLOGICALLY: Awake, alert, oriented with well-coordinated movements of upper and lower extremities. Patient did get out of bed and sit in a chair with some minimal assistance. LABORATORY ASSESSMENT: None new. ASSESSMENT: 1. Enterococcus bacteremia; source probably urinary tract infection. 2. Carcinoma of the bladder. 3. Pulmonary nodule. 4. Chronic obstructive pulmonary disease. PLAN: Continue present medical regimen. Patient's condition discussed with the patient and spouse; also with Dr. Mccallum. The plan is to continue the patient on present antibiotic. Once the patient's blood cultures are negative, a PICC line will be placed and the patient will be continued on IV antibiotics at home. Patient's condition was discussed with the patient. Prognosis guarded.
[2017-03-09] MEDS ORDERED: BISACODYL 10 MG SUPP RECTAL ONE (16:11)
[2017-03-10] MEDS: HYDROcodone/APAP 5-325MG 1 EACH TAB PO SCH ×4 (03:47→17:16)
[2017-03-10] MEDS: AMPICILLIN-SULBACTAM 3 GM in SODIUM CHLORIDE 0.9% 100 ML IVPB SCH ×3 (05:36→17:14)
[2017-03-10] MEDS: SYMBICORT 80-4.5 MCG INHALER INHALATION SCH ×2 (08:16→20:50)
[2017-03-10] MEDS: TAMSULOSIN 0.4 MG CAP.ER.24H PO SCH (09:36)
[2017-03-10] MEDS: SENNOSIDES-DOCUSATE SODIUM 1 EACH TAB PO SCH (09:36)
[2017-03-10] MEDS: HEPARIN SODIUM,PORCINE 5,000 UNIT/ML 1 ML VIAL SQ SCH ×2 (09:36→17:14)
[2017-03-10] MEDS: PANTOPRAZOLE 40 MG TABLET PO SCH (09:36)
[2017-03-10] MEDS: IBUPROFEN 600 MG TAB PO PRN (09:42)
--- NOTE | 2017-03-10 11:12 | PN ---
CHIEF COMPLAINT: Re-evaluation. HISTORY OF PRESENT ILLNESS: This 76-year-old gentleman was admitted to the hospital with bacteremia. Presumed source is urinary tract infection. The patient actually feels fairly well; denies any dysuria or hematuria. He continues to have back pain. His back pain seems to be somewhat better. During the night he had significant pain. REVIEW OF SYSTEMS: PSYCH: No anxiety, depression. CARDIAC: No chest pain, angina, palpitations. RESPIRATORY: Denies shortness of breath, cough, hemoptysis. GI: No nausea, vomiting, abdominal pain, diarrhea. No bowel movement. : No symptoms of dysuria, hematuria. EXTREMITIES: No pain. CONSTITUTIONAL: No fever or chills. PHYSICAL EXAMINATION: Pleasant gentleman in no distress. Vital signs reveal temperature 98.5, pulse 76, respiration 16, blood pressure 133/67, pulse ox 94% on room air. HEENT: Normocephalic. NECK: Supple. No JVD. LUNGS: Generalized decreased air flow. CARDIAC: Distant heart sounds, S1, S2, with no gallops. Systolic murmur 2/6, left sternal border. ABDOMEN: Soft. No palpable masses. Bowel sounds normal. No organomegaly. No abdominal bruits. No CVA tenderness. Patient does have some tenderness in the lower back. Extremities reveal no edema. No tenderness. EXTREMITIES: Trace edema. No tenderness. Neurologically awake, alert, oriented with well-coordinated movements. LABORATORY ASSESSMENT: CBC which revealed white count of 15,000, hemoglobin 11.3, platelets 264. ASSESSMENT: 1. Bacteremia secondary to urinary tract infection. 2. Urinary tract infection. 3. Carcinoma of the bladder. 4. Chronic obstructive pulmonary disease. 5. Pulmonary nodule. PLAN: The patient is stable. Continue present medical regimen. Patient's condition discussed with the patient. Prognosis guarded. Echocardiogram does not reveal any evidence of ( ) endocarditis. Patient has been seen by Dr. Mccallum. Await results of repeat blood cultures. Once cultures are negative, patient will have a PICC line, possibly on Sunday, and subsequently discharged. Patient's condition discussed with the patient, spouse and Dr. Mccallum. Prognosis remains guarded.
--- NOTE | 2017-03-10 15:09 | P.PN ---
Subjective Principal diagnosis: Entero coccal bacteremia History present illness: This 76-year-old gentleman was admitted to the hospital with a noted bacteremia. Patient's felt to have a urinary tract infection. He is feeling much better today is back pain is improved is able to get in and out of bed however has most pain when he tries to get out of bed. He does ambulate in able to stand fairly straight. He did have a small bowel movement. The patient has been able to void. The patient denies any dysuria. Denies any other symptoms of fever or chills. Back pain with no radiation. REVIEW OF SYSTEMS: Neuro: Denies any headaches dizziness. Psych: Denies anxiety depression feels oriented. Cardiac: Denies chest pain and angina palpitations. Respiratory: Denies shortness of breath cough. GI: Denies nausea vomiting or abdominal pain. No diarrhea or constipation, : Denies dysuria hematuria. Extremities: Denies pain mild edema Skin: Intact. Constitutional: Denies any fever or chills Musculoskeletal: Improving back pain Objective - Vital Signs Vital signs: Vital Signs Temp 97.9 F 03/10/17 14:10 Pulse 71 03/10/17 14:10 Resp 16 03/10/17 14:10 BP 123/65 03/10/17 14:10 Pulse Ox 94 L 03/10/17 14:10 Intake & Output 03/09/17 03/10/17 03/10/17 18:59 06:59 18:59 Intake Total 520 360 Output Total 125 Balance 395 360 Intake: Oral 520 360 Output: Urine 125 Other: Voiding Method Toilet Urinal # Voids 2 2 PHYSICAL EXAMINATION: Cooperative, at present in no acute distress. HEENT: Neck supple. No JVD. Chest: Clear to auscultation increased percussion note bilateral symmetrical Cardiac: Normal S1-S2 no gallops no murmur . Abdomen: Palpable gallbladder him a soft bowel sounds present. Extremities: 1+ edema of the feet no tenderness Neurologically: Awake, alert, oriented with well-coordinated movements. - Labs CBC & Chem 7: 03/09/17 06:41 03/07/17 15:47 Labs: Microbiology - Last 24 Hours (Table) 03/08/17 22:35 Blood Culture - Preliminary Blood No Growth after 24 hours 03/08/17 22:05 Blood Culture - Preliminary Blood No Growth after 24 hours 03/07/17 17:31 Blood Culture Gram Stain - Preliminary Blood 03/07/17 17:31 Blood Culture - Final Blood 03/07/17 17:04 Blood Culture Gram Stain - Preliminary Blood Blood Culture - Preliminary Group D Enterococcus Assessment and Plan Plan: ASSESSMENT: 1. Enterococcal bacteremia. 2. Probably urinary tract infection as the source.. 3. Incomplete bladder emptying. 4. Carcinoma of the bladder. 5. BPH. 6. COPD. 7. Pulmonary nodule. 8. Back Pain of unclear etiology. PLAN: Continue present medical regimen with IV antibiotics. Patient will have a PICC line placed on Sunday prior to discharge on home IV antibiotics for 2 weeks. Patient be continued on the Flomax. Prognosis remains guarded condition discussed with patient and spouse.
[2017-03-11] MEDS: IBUPROFEN 600 MG TAB PO PRN (00:05)
[2017-03-11] MEDS: ACETAMINOPHEN TAB 500 MG TAB PO PRN (00:06)
[2017-03-11] MEDS: AMPICILLIN-SULBACTAM 3 GM in SODIUM CHLORIDE 0.9% 100 ML IVPB SCH ×5 (00:07→23:22)
[2017-03-11] MEDS: HEPARIN SODIUM,PORCINE 5,000 UNIT/ML 1 ML VIAL SQ SCH ×3 (00:07→16:31)
[2017-03-11] MEDS: HYDROcodone/APAP 5-325MG 1 EACH TAB PO SCH ×7 (00:12→23:15)
[2017-03-11] MEDS: PANTOPRAZOLE 40 MG TABLET PO SCH (07:31)
[2017-03-11] MEDS: TAMSULOSIN 0.4 MG CAP.ER.24H PO SCH (07:31)
[2017-03-11] MEDS: SENNOSIDES-DOCUSATE SODIUM 1 EACH TAB PO SCH (07:48)
[2017-03-11] MEDS: SYMBICORT 80-4.5 MCG INHALER INHALATION SCH ×2 (08:36→20:11)
[2017-03-11 14:09] VITALS: RESP 16
--- NOTE | 2017-03-11 14:46 | P.PN ---
Subjective History present illness: 76-year-old gentleman admitted to the hospital with enterococcus bacteremia. No evidence of bacterial endocarditis. Presumed infection or urinary tract infection as he had a similar bacteria about a month ago in his urine. The patient had recently undergone BCG treatment for bladder cancer. Yesterday was noted to have still some postvoid retention of about 200 mL. Patient denies any symptoms. He had constipation which is improved and he is having bowel movements without much difficulty. No reported chills. He did have a low-grade temperature of 100.4 last night. Patient feels better his back is improved he is ambulating. REVIEW OF SYSTEMS: Neuro: Denies any headaches dizziness. Psych: Denies anxiety depression feels oriented. Cardiac: Denies chest pain and angina palpitations. Respiratory: Denies shortness of breath cough. GI: Denies nausea vomiting or abdominal pain. No diarrhea or constipation. : Denies dysuria hematuria. Extremities: Denies pain. Stable edema. Skin: Intact. Constitutional: No chills. Objective - Vital Signs Vital signs: Vital Signs Temp 98.1 F 03/11/17 14:08 Pulse 68 03/11/17 14:08 Resp 16 03/11/17 14:08 BP 134/70 03/11/17 14:08 Pulse Ox 96 03/11/17 14:08 Intake & Output 03/10/17 03/11/17 03/11/17 18:59 06:59 18:59 Intake Total 640 150 360 Output Total 200 150 Balance 440 0 360 Intake: Intake, IV Titration 100 Amount Ampicillin-Sulbactam 3 gm 100 In Sodium Chloride 0.9% 100 ml @ 100 mls/hr IVPB Q6HR [facility] Rx#:[id number] Oral 540 150 360 Output: Urine 150 Post Void Residual 200 Other: Voiding Method Toilet # Voids 2 1 PHYSICAL EXAMINATION: Cooperative, at present in no acute distress. HEENT: Neck supple. No JVD. Chest: Clear to auscultation increase symmetrical percussion note bilateral Cardiac: Normal S1-S2 no gallops no murmur . Abdomen: Soft bowel sounds present. Extremities: No edema no tenderness Neurologically: Awake, alert, oriented with well-coordinated movements. - Labs CBC & Chem 7: 03/09/17 06:41 03/07/17 15:47 Labs: Microbiology - Last 24 Hours (Table) 03/08/17 22:05 Blood Culture Gram Stain - Preliminary Blood Blood Culture - Preliminary Group D Enterococcus 03/07/17 17:31 Blood Culture Gram Stain - Final Blood Blood Culture - Final Enterococcus faecalis 03/07/17 17:04 Blood Culture Gram Stain - Final Blood Blood Culture - Final Enterococcus faecalis 03/08/17 22:35 Blood Culture - Preliminary Blood No Growth after 48 hours 03/08/17 22:05 Blood Culture - Final Blood Assessment and Plan Plan: ASSESSMENT: 1. Enterococcus bacteremia. 2. Probable urinary tract infection. 3. Carcinoma of the bladder. 4. sTable COPD. PLAN: Continue present medical regimen. Patient is scheduled to undergo a PICC line tomorrow. Repeat Blood cultures are negative so far.
[2017-03-12] MEDS: HEPARIN SODIUM,PORCINE 5,000 UNIT/ML 1 ML VIAL SQ SCH ×3 (00:12→15:35)
[2017-03-12] MEDS: CYCLOBENZAPRINE 5 MG TAB PO PRN (01:32)
[2017-03-12] MEDS: AMPICILLIN-SULBACTAM 3 GM in SODIUM CHLORIDE 0.9% 100 ML IVPB SCH ×4 (06:57→23:52)
[2017-03-12 07:22] LABS: Basophils # (A) 0.1 k/uL (0-0.2); Basophils % (A) 1 %; CH 30.8; CHCM 33.8; Eosinophils # (A) 0.2 k/uL (0-0.7); Eosinophils % (A) 1 %; HDW 2.72; HGB 12.2 gm/dL (13.0-17.5); Luc # (Auto) 0.48; Luc % (Auto) 4; Lymphocytes # (A) 2.5 k/uL (1.0-4.8); Lymphocytes % (A) 18 %; MCH 31.1 pg (25.0-35.0); MCV 91.4 fL (80.0-100.0); Mean Platelet Volume 6.9; Monocytes # (A) 1.1 k/uL (0-1.0); Monocytes % (A) 8 %; Neutrophils # (A) 9.6 k/uL (1.3-7.7); Neutrophils % (A) 69 %; RBC 3.94 m/uL (4.30-5.90); RDW 12.8 % (11.5-15.5); WBC 13.8 k/uL (3.8-10.6); WBC (Perox) 14.12
[2017-03-12] MEDS: SENNOSIDES-DOCUSATE SODIUM 1 EACH TAB PO SCH (07:25)
[2017-03-12] MEDS: TAMSULOSIN 0.4 MG CAP.ER.24H PO SCH (07:25)
[2017-03-12] MEDS: PANTOPRAZOLE 40 MG TABLET PO SCH (07:25)
[2017-03-12] MEDS: HYDROcodone/APAP 5-325MG 1 EACH TAB PO SCH ×6 (07:27→23:51)
[2017-03-12 07:42] LABS: ALT 35 U/L (21-72); AST 41 U/L (17-59); Alkaline Phosphatase 150 U/L (38-126); Anion Gap 10 mmol/L; Blood Urea Nitrogen 14 mg/dL (9-20); Calcium 8.8 mg/dL (8.4-10.2); Carbon Dioxide 24 mmol/L (22-30); Chloride 103 mmol/L (98-107); Glucose 95 mg/dL (74-99); Non-African American GFR(MDRD) >60 (>60 ml/min/1.73 sqM); Potassium 4.1 mmol/L (3.5-5.1); Sodium 137 mmol/L (137-145); Total Bilirubin 0.9 mg/dL (0.2-1.3); Total Protein 6.5 g/dL (6.3-8.2)
[2017-03-12] MEDS: SYMBICORT 80-4.5 MCG INHALER INHALATION SCH ×2 (07:53→21:56)
[2017-03-12] MEDS: MAGNESIUM HYDROXIDE 2,400 MG/10 ML CUP PO PRN (15:35)
--- NOTE | 2017-03-12 20:27 | P.PN ---
Subjective Principal diagnosis: sepsis This is a 76-year-old male who was recently diagnosed with bladder cancer. He has recently undergone a cystoscopy and following that he was on Cipro which he completed for urinary tract infection prior to a bladder biopsy. Following that patient states he was feeling well and did not have any symptoms of a urinary tract infection. He then started treatment with intravesicular BCG administration for treatment of bladder cancer with Dr. Woods. His treatment was last and patient states he has had some soreness since then but no real pain but started to run a fever on Sunday and was feeling sore all over. On Sunday, his temperature was [address] Mcnulty office and went into [facility] emergency center for evaluation. He had leukocytosis of 14.2 and his urinalysis was clear with nitrate and leukoesterase negative. Patient was provided with a liter of IV fluids, IV Tylenol, IV morphine and 1 dose of ceftriaxone IVPB. His fever had resolved and he was feeling improvement. He was discharged home to continue [place] and Motrin for pain and fever. Patient continued to have back pain and was not feeling well in general. On Sunday, he received a call from [facility] that a test was positive which he thought was his urine but it turned out to be a blood culture. He continued to have fever and was having difficulty sleeping due to pain in his hips in the center of his back. He called Dr. Woods on Sunday and also called Dr. Her who saw him in the office. He was then sent over to [facility] as a direct admission for enterococcus bacteremia. Patient was given 1 dose of vancomycin which is been changed to Unasyn. His temperature max has been 100.9 with leukocytosis of 13.7. CRP 127 and 3 albumin 9. Repeat blood culture has status received. Patient feeling better today. Still having some discomfort when he tries to lay flat in bed. It is severe pain in his flanks is difficult improved. Fever overall he is improved but still 100.6 today. Denies other new symptoms. No shortness of breath chest pain or new back or flank pain. Does have urinary frequency still. Objective - Vital Signs Vital signs: Vital Signs Temp 98.5 F 03/12/17 15:00 Pulse 63 03/12/17 15:00 Resp 16 03/12/17 15:00 BP 121/60 03/12/17 15:00 Pulse Ox 98 03/12/17 15:00 Intake & Output 03/12/17 03/12/17 03/13/17 06:59 18:59 06:59 Intake Total 100 600 Output Total 500 500 Balance -400 100 Weight 77.72 kg Intake: IV 100 Ampicillin-Sulbactam 3 gm 100 In Sodium Chloride 0.9% 100 ml @ 100 mls/hr IVPB Q6HR [facility] Rx#:[id number] Intake, IV Titration 100 100 Amount Ampicillin-Sulbactam 3 gm 100 100 In Sodium Chloride 0.9% 100 ml @ 100 mls/hr IVPB Q6HR [facility] Rx#:[id number] Oral 400 Output: Urine 500 500 Other: Voiding Method Toilet Toilet Urinal Urinal # Voids 0 480 - Exam Gen: This is a 76-year-old male. He is sitting up in bed and appears to be in no acute distress. He does state that he is uncomfortable due to his back pain. HEENT: Head is atraumatic, normocephalic. Pupils equal, round. Sclerae is anicteric. Oral mucous membranes are moist. No thrush noted. Dentition is in good order. NECK: Supple. No JVD. No lymphadenopathy. No thyromegaly. LUNGS: Clear to auscultation. No wheezes or rhonchi. No intercostal retractions. HEART: Regular rate and rhythm. Systolic murmur. ABDOMEN: Soft. Bowel sounds are present. No masses. No tenderness. EXTREMITIES: No pedal edema. No calf tenderness. NEUROLOGICAL: Patient is awake, alert and oriented x3. Bilateral flank pain is just slightly improved today. - Labs CBC & Chem 7: 03/12/17 06:51 03/12/17 06:51 Labs: Abnormal Lab Results - Last 24 Hours (Table) 03/12/17 03/12/17 Range/Units 06:51 06:51 WBC 13.8 H (3.8-10.6) k/uL RBC 3.94 L (4.30-5.90) m/uL Hgb 12.2 L (13.0-17.5) gm/dL Hct 36.0 L (39.0-53.0) % Neutrophils # 9.6 H (1.3-7.7) k/uL Monocytes # 1.1 H (0-1.0) k/uL Creatinine 0.65 L (0.66-1.25) mg/dL Alkaline Phosphatase 150 H (38-126) U/L Albumin 3.2 L (3.5-5.0) g/dL Microbiology - Last 24 Hours (Table) 03/10/17 20:43 Blood Culture Gram Stain - Preliminary Blood 03/10/17 20:43 Blood Culture - Final Blood 03/08/17 22:35 Blood Culture - Preliminary Blood No Growth after 72 hours Laboratory Results WBC 13.8 k/uL (3.8-10.6) H 03/12/17 06:51 RBC 3.94 m/uL (4.30-5.90) L 03/12/17 06:51 Hgb 12.2 gm/dL (13.0-17.5) L 03/12/17 06:51 Hct 36.0 % (39.0-53.0) L 03/12/17 06:51 MCV 91.4 fL (80.0-100.0) 03/12/17 06:51 MCH 31.1 pg (25.0-35.0) 03/12/17 06:51 MCHC 34.0 g/dL (31.0-37.0) 03/12/17 06:51 RDW 12.8 % (11.5-15.5) 03/12/17 06:51 Plt Count 352 k/uL (150-450) 03/12/17 06:51 Neutrophils % 69 % 03/12/17 06:51 Neutrophils % (Manual) 73.0 % 03/07/17 15:47 Lymphocytes % 18 % 03/12/17 06:51 Lymphocytes % (Manual) 13.0 % 03/07/17 15:47 Monocytes % 8 % 03/12/17 06:51 Monocytes % (Manual) 13.0 % 03/07/17 15:47 Eosinophils % 1 % 03/12/17 06:51 Eosinophils % (Manual) 1.0 % 03/07/17 15:47 Basophils % 1 % 03/12/17 06:51 Neutrophils # 9.6 k/uL (1.3-7.7) H 03/12/17 06:51 Neutrophils # (Manual) 10.0 k/uL (1.3-7.7) H 03/07/17 15:47 Lymphocytes # 2.5 k/uL (1.0-4.8) 03/12/17 06:51 Lymphocytes # (Manual) 1.8 k/uL (1.0-4.8) 03/07/17 15:47 Monocytes # 1.1 k/uL (0-1.0) H 03/12/17 06:51 Monocytes # (Manual) 1.8 k/uL (0-1.0) H 03/07/17 15:47 Eosinophils # 0.2 k/uL (0-0.7) 03/12/17 06:51 Eosinophils # (Manual) 0.1 k/uL (0-0.7) 03/07/17 15:47 Basophils # 0.1 k/uL (0-0.2) 03/12/17 06:51 Nucleated RBCs 0 /100 WBC (0-0) 03/07/17 15:47 Manual Slide Review Performed 03/07/17 15:47 RBC Morphology Normal 03/07/17 15:47 Sodium 137 mmol/L (137-145) 03/12/17 06:51 Potassium 4.1 mmol/L (3.5-5.1) 03/12/17 06:51 Chloride 103 mmol/L (98-107) 03/12/17 06:51 Carbon Dioxide 24 mmol/L (22-30) 03/12/17 06:51 Anion Gap 10 mmol/L 03/12/17 06:51 BUN 14 mg/dL (9-20) 03/12/17 06:51 Creatinine 0.65 mg/dL (0.66-1.25) L 03/12/17 06:51 Est GFR (MDRD) Af Amer >60 (>60 ml/min/1.73 sqM) 03/12/17 06:51 Est GFR (MDRD) Non-Af >60 (>60 ml/min/1.73 sqM) 03/12/17 06:51 Glucose 95 mg/dL (74-99) 03/12/17 06:51 Calcium 8.8 mg/dL (8.4-10.2) 03/12/17 06:51 Total Bilirubin 0.9 mg/dL (0.2-1.3) 03/12/17 06:51 AST 41 U/L (17-59) 03/12/17 06:51 ALT 35 U/L (21-72) 03/12/17 06:51 Alkaline Phosphatase 150 U/L (38-126) H 03/12/17 06:51 C-Reactive Protein 127.1 mg/L (<10.0) H 03/07/17 17:04 Total Protein 6.5 g/dL (6.3-8.2) 03/12/17 06:51 Albumin 3.2 g/dL (3.5-5.0) L 03/12/17 06:51 Prealbumin 9 mg/dL (18-36) L 03/07/17 17:04 Microbiology 03/10/17 20:43 Blood Blood Culture Gram Stain - Preliminary 03/10/17 20:43 Blood Blood Culture - Final 03/08/17 22:35 Blood Blood Culture - Preliminary No Growth after 72 hours 03/08/17 22:05 Blood Blood Culture Gram Stain - Preliminary 03/08/17 22:05 Blood Blood Culture - Preliminary Group D Enterococcus 03/07/17 17:31 Blood Blood Culture Gram Stain - Final 03/07/17 17:31 Blood Blood Culture - Final Enterococcus faecalis 03/07/17 17:04 Blood Blood Culture Gram Stain - Final 03/07/17 17:04 Blood Blood Culture - Final Enterococcus faecalis 03/08/17 22:05 Blood Blood Culture - Final 03/07/17 17:31 Blood Blood Culture - Final 03/07/17 17:04 Blood Blood Culture - Preliminary Assessment and Plan (1) Bacteremia due to Enterococcus Narrative/Plan: This is a 76-year-old male who is recently diagnosed with bladder cancer status post intravesicular PSG treatment and subsequently developed fever and bacteremia most likely secondary to recent bladder procedures. Patient now showing some improvement. His back pain is slightly improved. Not having significant fever and leukocytosis is stable to improved His prealbumin is low and these protein supplementation. Blood cultures at admission were positive for enterococcus. Follow blood cultures are process and pending. If all blood cultures are negative the may have a PICC line in Sunday and plan discharged home with home intravenous antibiotic therapy. If any further blood cultures within need echocardiogram and further evaluation. As noted further positive blood cultures have been noted. PICC line has been canceled. A KAYY has been requested to evaluate for the possibility of endocarditis. Another potential source of ongoing infection would be his prostate in May need further urological evaluation and intervention. Follow blood cultures are again requested and monitor. PICC line will not be placed until bacteremia is clear. We'll add gentamicin if evidence of endocarditis Status: Acute
[2017-03-12] MEDS: IBUPROFEN 600 MG TAB PO PRN (23:51)
[2017-03-13] MEDS: HEPARIN SODIUM,PORCINE 5,000 UNIT/ML 1 ML VIAL SQ SCH ×4 (01:28→23:39)
[2017-03-13] MEDS: AMPICILLIN-SULBACTAM 3 GM in SODIUM CHLORIDE 0.9% 100 ML IVPB SCH ×4 (05:58→23:39)
--- NOTE | 2017-03-13 07:09 | PN ---
CHIEF COMPLAINT: Re-evaluation. HISTORY OF PRESENT ILLNESS: This 76-year-old gentleman was admitted to the hospital with enterococcus bacteremia. The patient has persistent positive cultures. An echocardiogram was negative. He has no murmurs appreciated. The patient does not appear ill. He does have lower back pain, which is improved. He is able to ambulate and will stand fairly straight. I did review the x-rays and CAT scan with the radiologist again today. There is no suggestion of any discitis or any abnormal bone x-rays to suggest any osteomyelitis. The patient has no evidence of any fluid collection in the pelvic area, to suggest any extravesical infection such as an abscess. The patient is actually feeling fairly well, otherwise. His bowels are moving fairly well. He does have some lower abdominal discomfort. No nausea, vomiting. Good appetite. No diarrhea. no symptoms of dysuria, hematuria. Does have frequency. REVIEW OF SYSTEMS: NEURO: Denies any headaches, dizziness. PSYCH: No anxiety. CARDIAC: No chest pain, angina, palpitation. RESPIRATORY: Denies shortness of breath, cough. GI: No nausea, vomiting, abdominal pain, diarrhea. Mild constipation. : No symptoms of dysuria, hematuria. Does have some frequency. Has been voiding fairly well. EXTREMITIES: Denies pain, some edema. CONSTITUTIONAL: No fever or chills. PHYSICAL EXAMINATION: Pleasant gentleman, at present in no distress. Vital signs reveal temperature of 100.6 earlier at 7 a.m., pulse 79, respirations 16, blood pressure 139/66, pulse ox is 95% on room air. HEENT: Normocephalic. NECK: No JVD. Chest is clear to auscultation with mild generalized decreased air flow. CARDIAC: Distant heart sounds. S1, S2 with no gallops. Systolic murmur 2/6 left sternal border. ABDOMEN: Soft, no palpable masses. Bowel sounds normal. Extremities reveal trace edema. NEUROLOGIC: Awake, alert, and oriented x3 with well-coordinated movements. LABORATORY ASSESSMENT: White count was 13.8, hemoglobin 12.2. Relatively stable. Electrolytes are normal. BUN 14, creatinine 0.65. Hepatic functions normal, alkaline phosphatase mildly elevated at 150. Blood culture reveal positive from 03/10, one out of two positive. ASSESSMENT: 1. Enterococcus bacteremia. 2. Carcinoma of the bladder. 3. History of chronic obstructive pulmonary disease. PLAN: Continue present medical regimen. The patient's condition was discussed with the patient and spouse. Will ask Dr. Ezequiel Woods, the urologist to evaluate the patient. Prognosis remains guarded. The patient has fairly good post-void residuals.
[2017-03-13] MEDS: PANTOPRAZOLE 40 MG TABLET PO SCH (07:10)
[2017-03-13] MEDS: HYDROcodone/APAP 5-325MG 1 EACH TAB PO SCH ×6 (07:10→23:39)
[2017-03-13] MEDS: SYMBICORT 80-4.5 MCG INHALER INHALATION SCH ×2 (07:28→19:47)
[2017-03-13] MEDS ORDERED: MIDAZOLAM 2 MG/2 ML VIAL ONE (12:05)
[2017-03-13] MEDS ORDERED: fentaNYL (PF) 50 MCG/ML 2 ML AMP ONE (12:05)
[2017-03-13] MEDS: BENZOCAINE SPRAY 100 APPLIC/CAN MUCOUS MEM ONE ×2 (12:29→12:32)
[2017-03-13] MEDS: fentaNYL (PF) 50 MCG/ML 2 ML AMP IV ONE ×2 (12:32→12:39)
[2017-03-13] MEDS: MIDAZOLAM 2 MG/2 ML VIAL IVP ONE ×2 (12:32→12:39)
[2017-03-13] MEDS ORDERED: SODIUM CHLORIDE 0.9% 1,000 ML IV ONE (12:36)
[2017-03-13] MEDS: TAMSULOSIN 0.4 MG CAP.ER.24H PO SCH (13:49)
[2017-03-13] MEDS: SENNOSIDES-DOCUSATE SODIUM 1 EACH TAB PO SCH (13:49)
[2017-03-13] MEDS: IBUPROFEN 600 MG TAB PO PRN ×2 (13:50→23:38)
--- NOTE | 2017-03-13 13:56 | ECHOT ---
DATE OF SERVICE: This patient is on the third surgical floor. This patient is admitted with fever and has persistent bacteremia with Enterococcus faecalis. In view of that, the patient was recommended to have a transesophageal echocardiogram to rule out any evidence of endocarditis. Patient was given intravenous sedation with fentanyl and Versed and transesophageal echocardiogram was performed without any complications. Left ventricular chamber is normal in size with normal left ventricular systolic functions. Mitral valve morphology is normal. There is no evidence of any vegetations. Tricuspid valve morphology is normal. Aortic valve is mildly thickened. There is no evidence of any vegetations. Color Doppler study shows evidence of mild degree of mitral regurgitation. Interatrial septum is intact. There is no evidence of any PFO. Descending thoracic aorta shows mild atherosclerotic changes. FINAL IMPRESSION: 1. There is no definite evidence of any vegetations on aortic, mitral or tricuspid valve. 2. There is mild mitral regurgitation noted. 3. Left ventricular systolic function is normal. 4. Interatrial septum is intact. There is no evidence of patent foramen ovale. 5. Mild atherosclerotic changes are noted in descending thoracic aorta.
--- NOTE | 2017-03-13 17:34 | P.PN ---
Subjective Principal diagnosis: Entero coccal bacteremia 76-year-old admitted with enterococcus bacteremia presumed urinary tract infection since he had a enterococcus urinary tract infection about a month ago. Due to continued bacteremia he did undergo a KAYY today. It reveals no evidence of bacterial endocarditis. He did have an echo done at the time of admission which was also not indicated for of any endocarditis. The patient actually does not appear sick right now he feels fairly good his lower back pain is resolving. The patient has had no fever since yesterday morning. Denies any urinary symptoms except for frequency. Post treatment wide residual was increased. Patient is on Flomax. His edema lower legs is resolving, all in all patient feels much better. Denies any abdominal discomfort today did have a good bowel movement last night. REVIEW OF SYSTEMS: Neuro: Denies any headaches dizziness. Psych: Denies anxiety depression feels oriented. Cardiac: Denies chest pain and angina palpitations. Respiratory: Denies shortness of breath cough. GI: Denies nausea vomiting or abdominal pain. No diarrhea or constipation, no bowel movement yet today. : Denies dysuria hematuria. Extremities: Denies pain. No edema. Skin: Intact. Constitutional: No fever, chills. Objective - Vital Signs Vital signs: Vital Signs Temp 97.4 F L 03/13/17 13:15 Pulse 64 03/13/17 16:00 Resp 16 03/13/17 16:00 BP 135/62 03/13/17 13:15 Pulse Ox 98 03/13/17 13:15 Intake & Output 03/12/17 03/13/17 03/13/17 18:59 06:59 18:59 Intake Total 600 600 125 Output Total 500 Balance 100 600 125 Weight 77.72 kg 77.72 kg Intake: IV 100 300 125 Ampicillin-Sulbactam 3 gm 100 300 In Sodium Chloride 0.9% 100 ml @ 100 mls/hr IVPB Q6HR [facility] Rx#:[id number] Intake, IV Titration 100 Amount Ampicillin-Sulbactam 3 gm 100 In Sodium Chloride 0.9% 100 ml @ 100 mls/hr IVPB Q6HR [facility] Rx#:[id number] Oral 400 300 Output: Urine 500 Other: Voiding Method Toilet Toilet Toilet Urinal Urinal Urinal # Voids 480 2 3 PHYSICAL EXAMINATION: Cooperative, at present in no acute distress. HEENT: Neck supple. No JVD. Chest: Clear to auscultation increased percussion note bilateral symmetrical Cardiac: Normal S1-S2 no gallops no murmur . Abdomen: Soft bowel sounds present. Extremities: No edema no tenderness Neurologically: Awake, alert, oriented with well-coordinated movements. - Labs CBC & Chem 7: 03/12/17 06:51 03/12/17 06:51 Labs: Microbiology - Last 24 Hours (Table) 03/08/17 22:05 Blood Culture Gram Stain - Final Blood Blood Culture - Final Enterococcus faecalis 03/08/17 22:35 Blood Culture - Preliminary Blood No Growth after 96 hours 03/10/17 20:43 Blood Culture Gram Stain - Preliminary Blood Blood Culture - Preliminary Group D Enterococcus Assessment and Plan Plan: ASSESSMENT: 1. Enterococcus bacteremia. 2. Probable urinary tract infection. 3. Carcinoma of the bladder. 4. Stable COPD. PLAN: Continue present medical regimen. Patient is scheduled to possibly undergo a PICC line tomorrow. Repeat Blood cultures are negative so far. KAYY was not indicative of bacterial endocarditis
--- NOTE | 2017-03-13 23:33 | P.PN ---
Subjective Principal diagnosis: sepsis This is a 76-year-old male who was recently diagnosed with bladder cancer. He has recently undergone a cystoscopy and following that he was on Cipro which he completed for urinary tract infection prior to a bladder biopsy. Following that patient states he was feeling well and did not have any symptoms of a urinary tract infection. He then started treatment with intravesicular BCG administration for treatment of bladder cancer with Dr. Woods. His treatment was last and patient states he has had some soreness since then but no real pain but started to run a fever on Sunday and was feeling sore all over. On Sunday, his temperature was [address] Mcnulty office and went into [facility] emergency center for evaluation. He had leukocytosis of 14.2 and his urinalysis was clear with nitrate and leukoesterase negative. Patient was provided with a liter of IV fluids, IV Tylenol, IV morphine and 1 dose of ceftriaxone IVPB. His fever had resolved and he was feeling improvement. He was discharged home to continue [place] and Motrin for pain and fever. Patient continued to have back pain and was not feeling well in general. On Sunday, he received a call from [facility] that a test was positive which he thought was his urine but it turned out to be a blood culture. He continued to have fever and was having difficulty sleeping due to pain in his hips in the center of his back. He called Dr. Woods on Sunday and also called Dr. Her who saw him in the office. He was then sent over to [facility] as a direct admission for enterococcus bacteremia. Patient was given 1 dose of vancomycin which is been changed to Unasyn. His temperature max has been 100.9 with leukocytosis of 13.7. CRP 127 and 3 albumin 9. Repeat blood culture has status received. Patient feeling better today. Less discomfort when he tries to lay flat in bed. The severe pain in his flanks is improved. Fever overall he is improved Denies other new symptoms. No shortness of breath chest pain or new back or flank pain. Does have urinary frequency still. Objective - Vital Signs Vital signs: Vital Signs Temp 97.7 F 03/13/17 19:49 Pulse 71 03/13/17 19:49 Resp 16 03/13/17 19:49 BP 130/70 03/13/17 19:49 Pulse Ox 95 03/13/17 19:49 Intake & Output 03/13/17 03/13/17 03/14/17 06:59 18:59 06:59 Intake Total 600 125 200 Output Total 300 Balance 600 -175 200 Weight 77.72 kg Intake: IV 300 125 Ampicillin-Sulbactam 3 gm 300 In Sodium Chloride 0.9% 100 ml @ 100 mls/hr IVPB Q6HR [facility] Rx#:[id number] Oral 300 200 Output: Urine 300 Other: Voiding Method Toilet Toilet Toilet Urinal Urinal # Voids 2 3 2 - Exam Gen: This is a 76-year-old male. He is sitting up in bed and appears to be in no acute distress. He does state that he is uncomfortable due to his back pain. HEENT: Head is atraumatic, normocephalic. Pupils equal, round. Sclerae is anicteric. Oral mucous membranes are moist. No thrush noted. Dentition is in good order. NECK: Supple. No JVD. No lymphadenopathy. No thyromegaly. LUNGS: Clear to auscultation. No wheezes or rhonchi. No intercostal retractions. HEART: Regular rate and rhythm. Systolic murmur. ABDOMEN: Soft. Bowel sounds are present. No masses. No tenderness. EXTREMITIES: No pedal edema. No calf tenderness. NEUROLOGICAL: Patient is awake, alert and oriented x3. Bilateral flank pain is improved today. - Labs CBC & Chem 7: 03/12/17 06:51 03/12/17 06:51 Labs: Microbiology - Last 24 Hours (Table) 03/08/17 22:05 Blood Culture Gram Stain - Final Blood Blood Culture - Final Enterococcus faecalis 03/08/17 22:35 Blood Culture - Preliminary Blood No Growth after 96 hours 03/10/17 20:43 Blood Culture Gram Stain - Preliminary Blood Blood Culture - Preliminary Group D Enterococcus Laboratory Results WBC 13.8 k/uL (3.8-10.6) H 03/12/17 06:51 RBC 3.94 m/uL (4.30-5.90) L 03/12/17 06:51 Hgb 12.2 gm/dL (13.0-17.5) L 03/12/17 06:51 Hct 36.0 % (39.0-53.0) L 03/12/17 06:51 MCV 91.4 fL (80.0-100.0) 03/12/17 06:51 MCH 31.1 pg (25.0-35.0) 03/12/17 06:51 MCHC 34.0 g/dL (31.0-37.0) 03/12/17 06:51 RDW 12.8 % (11.5-15.5) 03/12/17 06:51 Plt Count 352 k/uL (150-450) 03/12/17 06:51 Neutrophils % 69 % 03/12/17 06:51 Neutrophils % (Manual) 73.0 % 03/07/17 15:47 Lymphocytes % 18 % 03/12/17 06:51 Lymphocytes % (Manual) 13.0 % 03/07/17 15:47 Monocytes % 8 % 03/12/17 06:51 Monocytes % (Manual) 13.0 % 03/07/17 15:47 Eosinophils % 1 % 03/12/17 06:51 Eosinophils % (Manual) 1.0 % 03/07/17 15:47 Basophils % 1 % 03/12/17 06:51 Neutrophils # 9.6 k/uL (1.3-7.7) H 03/12/17 06:51 Neutrophils # (Manual) 10.0 k/uL (1.3-7.7) H 03/07/17 15:47 Lymphocytes # 2.5 k/uL (1.0-4.8) 03/12/17 06:51 Lymphocytes # (Manual) 1.8 k/uL (1.0-4.8) 03/07/17 15:47 Monocytes # 1.1 k/uL (0-1.0) H 03/12/17 06:51 Monocytes # (Manual) 1.8 k/uL (0-1.0) H 03/07/17 15:47 Eosinophils # 0.2 k/uL (0-0.7) 03/12/17 06:51 Eosinophils # (Manual) 0.1 k/uL (0-0.7) 03/07/17 15:47 Basophils # 0.1 k/uL (0-0.2) 03/12/17 06:51 Nucleated RBCs 0 /100 WBC (0-0) 03/07/17 15:47 Manual Slide Review Performed 03/07/17 15:47 RBC Morphology Normal 03/07/17 15:47 Sodium 137 mmol/L (137-145) 03/12/17 06:51 Potassium 4.1 mmol/L (3.5-5.1) 03/12/17 06:51 Chloride 103 mmol/L (98-107) 03/12/17 06:51 Carbon Dioxide 24 mmol/L (22-30) 03/12/17 06:51 Anion Gap 10 mmol/L 03/12/17 06:51 BUN 14 mg/dL (9-20) 03/12/17 06:51 Creatinine 0.65 mg/dL (0.66-1.25) L 03/12/17 06:51 Est GFR (MDRD) Af Amer >60 (>60 ml/min/1.73 sqM) 03/12/17 06:51 Est GFR (MDRD) Non-Af >60 (>60 ml/min/1.73 sqM) 03/12/17 06:51 Glucose 95 mg/dL (74-99) 03/12/17 06:51 Calcium 8.8 mg/dL (8.4-10.2) 03/12/17 06:51 Total Bilirubin 0.9 mg/dL (0.2-1.3) 03/12/17 06:51 AST 41 U/L (17-59) 03/12/17 06:51 ALT 35 U/L (21-72) 03/12/17 06:51 Alkaline Phosphatase 150 U/L (38-126) H 03/12/17 06:51 C-Reactive Protein 127.1 mg/L (<10.0) H 03/07/17 17:04 Total Protein 6.5 g/dL (6.3-8.2) 03/12/17 06:51 Albumin 3.2 g/dL (3.5-5.0) L 03/12/17 06:51 Prealbumin 9 mg/dL (18-36) L 03/07/17 17:04 Microbiology 03/08/17 22:05 Blood Blood Culture Gram Stain - Final 03/08/17 22:05 Blood Blood Culture - Final Enterococcus faecalis 03/08/17 22:35 Blood Blood Culture - Preliminary No Growth after 96 hours 03/10/17 20:43 Blood Blood Culture Gram Stain - Preliminary 03/10/17 20:43 Blood Blood Culture - Preliminary Group D Enterococcus 03/10/17 20:43 Blood Blood Culture - Final 03/07/17 17:31 Blood Blood Culture Gram Stain - Final 03/07/17 17:31 Blood Blood Culture - Final Enterococcus faecalis 03/07/17 17:04 Blood Blood Culture Gram Stain - Final 03/07/17 17:04 Blood Blood Culture - Final Enterococcus faecalis 03/08/17 22:05 Blood Blood Culture - Final 03/07/17 17:31 Blood Blood Culture - Final 03/07/17 17:04 Blood Blood Culture - Preliminary Assessment and Plan (1) Bacteremia due to Enterococcus Narrative/Plan: This is a 76-year-old male who is recently diagnosed with bladder cancer status post intravesicular PSG treatment and subsequently developed fever and bacteremia most likely secondary to recent bladder procedures. Patient now showing some improvement. His back pain is slightly improved. Not having significant fever and leukocytosis is stable to improved His prealbumin is low and these protein supplementation. Blood cultures at admission were positive for enterococcus. Follow blood cultures are process and pending. If all blood cultures are negative the may have a PICC line in Sunday and plan discharged home with home intravenous antibiotic therapy. If any further blood cultures within need echocardiogram and further evaluation. A KAYY has been requested to evaluate for the possibility of endocarditis. Follow blood cultures are again requested and monitor. PICC line will not be placed until bacteremia is clear. We'll add gentamicin if evidence of endocarditis. transesophageal the cardiac exam is consequently some ongoing concern as to potential urogenital source, urological reevaluation would be may need a transrectal prostate ultrasound for further evaluation of a possible prostate abscess. fortunately the patient is doing very well. No fever chills or rigors, feels well. Pain is improved. We'll have a PICC line placed plan his outpatient antibiotic therapy over the next several weeks Status: Acute
[2017-03-14] MEDS: HYDROcodone/APAP 5-325MG 1 EACH TAB PO SCH ×4 (04:16→15:34)
[2017-03-14] MEDS: AMPICILLIN-SULBACTAM 3 GM in SODIUM CHLORIDE 0.9% 100 ML IVPB SCH ×2 (05:32→12:42)
[2017-03-14] MEDS: SYMBICORT 80-4.5 MCG INHALER INHALATION SCH (07:14)
[2017-03-14] MEDS: PANTOPRAZOLE 40 MG TABLET PO SCH (07:28)
[2017-03-14] MEDS: TAMSULOSIN 0.4 MG CAP.ER.24H PO SCH (07:29)
[2017-03-14] MEDS: SENNOSIDES-DOCUSATE SODIUM 1 EACH TAB PO SCH (07:30)
[2017-03-14 07:53] VITALS: PULSE 65
[2017-03-14] MEDS: MAGNESIUM HYDROXIDE 2,400 MG/10 ML CUP PO PRN (10:05)
[2017-03-14] MEDS: IBUPROFEN 600 MG TAB PO PRN (10:05)
[2017-03-14] MEDS: CYCLOBENZAPRINE 5 MG TAB PO PRN (10:37)
[2017-03-14] MEDS: HEPARIN SODIUM,PORCINE 5,000 UNIT/ML 1 ML VIAL SQ SCH (12:20)
[2017-03-14] MEDS ORDERED: LIDOCAINE 2% INJ 20 MG/ML SQ ONE (14:42)
[2017-03-14 15:28] VITALS: BP 135/78; TEMP 98
--- NOTE | 2017-03-14 16:17 | CONS ---
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 This is identified after having recurrent gross hematuria. He underwent a cysto and bladder biopsies that identified this carcinoma in situ. Because of diagnosis he was going to receive intravesical BCG therapy. Approximately 2 weeks ago he underwent his first intravesical instillation. Several days later he developed some significant back pain and abdominal discomfort. He was seen in the emergency room and his urine was clear. His white count was elevated. There is no fever. The etiology of this is uncertain. He subsequently came to the office and was seen. The urine also was clear. I was uncertain as to the exact cause of the problem due to the severe back pain. I recommended see his primary doctor. At this time he saw Dr. Her he was having fever and chills. He was admitted to hospital and found to have an elevated white count. His urine is clear but he had a positive blood culture for enterococcus. He had eventual consultation with Dr. Mccallum. He was placed and IV antibiotics and eventually the enterococcus has been controlled. He did have cardiac cath, ruling out valvular vegetations. He had no other obvious cause for the enterococcus other than urinary tract source. He is recuperating nicely. He seems to be voiding well. He does have outlet obstruction and has been on alpha sergio. I suspect this patient has had an enterococcus septicemia probably related to urinary tract issues. Whether he has had a chronic prostatitis, although he has had no symptoms to suggest that aggravated by the manipulation is hard to say. Whether there is a gastrointestinal source unrecognized is another possibility. Regardless, he is on IV antibiotics, which is appropriate. He will continue on his alpha sergio in time and complete voiding. We will see him in the office and after he is off his intravenous antibiotics, we will resume intravesical instillations of BCG. I will monitor his incomplete bladder emptying.
--- NOTE | 2017-03-15 06:58 | PN ---
CHIEF COMPLAINT: Re-evaluation. HISTORY OF PRESENT ILLNESS: This gentleman was admitted to the hospital because of ( ) positive bacteremia with enterococcus. Bacterial endocarditis has been ruled out. The patient is actually feeling better. He has been afebrile for more than 48 hours. Blood cultures have been negative so far. The patient in view of this, plan for a PICC line. REVIEW OF SYSTEMS: NEURO: Denies any headaches, dizziness. PSYCH: No anxiety. CARDIAC: No chest pain, angina, palpitation. RESPIRATORY: No shortness breath, cough. GI: No nausea, vomiting, abdominal pain, diarrhea. Did have bowel movement. : No symptoms of dysuria, hematuria. Does have frequency. EXTREMITIES: No pain or edema. CONSTITUTIONAL: No fever or chills. MUSCULOSKELETAL: Lower back pain improving with limited controlled pain. Vital signs revealed temperature 96.6, pulse 65, respirations 16, blood pressure 134/73. HEENT: Normocephalic. NECK: Supple. No JVD. Chest is clear to auscultation with mild generalized decreased air flow. CARDIAC: Distant heart sounds. S1, S2 with no gallops or murmurs. ABDOMEN: Soft. Bowel sounds present. EXTREMITIES: Trace edema at the ankles. Otherwise, no tenderness. NEUROLOGICAL: Awake, alert, oriented with well coordinated movements. Laboratory assessment is none new. ASSESSMENT: 1. Bacteremia with urinary tract infection probably from underlying prostatitis. 2. Carcinoma of the bladder. 3. Chronic obstructive pulmonary disease. 4. Pulmonary nodule. PLAN: The patient is stable. Continue present medical regimen. The patient's condition discussed with the patient. Prognosis guarded. After PICC line, the patient should be able to be discharged home. The patient is going to continue IV antibiotics at home.
--- NOTE | 2017-03-15 11:24 | IR ---
PICC LINE PLACEMENT: HISTORY: Infection requiring long-term antibiotic therapy PROCEDURE: Ultrasound and fluoroscopic guidance of PICC line placement. COMPLICATIONS: None ANESTHESIA: 1. 1% Lidocaine locally. FINDINGS/TECHNIQUE: The procedure was explained to the patient. The risks, complications, benefits and alternatives were discussed and any questions were answered. Informed consent was obtained. The patient was placed supine on the fluoroscopic table and prepped and draped in the usual sterile [facility] ion. Utilizing a 21 gauge needle and sonographic and fluoroscopic guidance, access in the vein was achieved and there is placement of a 0.018 guidewire. The vein is patent. A 4-F sheath was placed o christiano the guidewire. The guidewire and dilator were removed and a 4-F. PICC line was placed through th e sheath with the tip at the level of the SVC. The sheath was removed, the catheter was flushed and sutured into position. The patient was stable throughout the procedure and remained stable upon disc harge from the Department of Radiology. The vein puncture was patent under ultrasound. A oreilly scale image was obtained to document patency of the vein punctured. All elements of the maximal barrier technique were utilized. FLUOROSCOPY TIME: 0.1 minute IMPRESSION: Successful PICC line placement under ultrasound and fluoroscopic guidance.
--- NOTE | 2017-03-15 18:56 | P.DS ---
Providers Date of admission: 03/07/17 12:07 Expected date of discharge: 03/14/17 Attending physician: Malcolm Her Consults: 03/07/17 12:42 Consult Physician Urgent Consulting Provider: Alexis Mccallum Consult Reason/Comments: bacteremia Do you want consulting provider notified?: Yes 03/12/17 22:39 Consult Physician Routine Consulting Provider: Surjit Woods Consult Reason/Comments: uti/postvoid increased residuals Do you want consulting provider notified?: Yes, Notify in am Primary care physician: Malcolm Her [facility] Course: History of present illness/hospital course. This gentleman is 76 years of age was admitted to the hospital from the outpatient for a positive blood culture. The patient had been in the emergency room diagnosed of urinary tract infection. Urine culture was negative other blood culture was positive for enterococcus. Patient seen in the office did not appear toxic or sick patient' s in for more blood cultures. The patient also had complained of significant back pain. There was no radicular symptoms. The patient had symptoms of constipation associated. He had recently been treated with a urinary tract infection a month ago. It was also enterococcus. The patient's been treated with Cipro. The patient was recently diagnosed with a urinary bladder carcinoma and was treated with BCG infusion intravascularly about a few days prior to this is in addition to the emergency room. The patient blood culture drawn on the outpatient were positive within 12 hours with enterococcus. Patient admitted to the hospital started on IV Unasyn. He was actually given 1 dose of vancomycin and subsequently switched over by ID to Unasyn. The patient had pain medications. A CAT scan of the abdomen and pelvis in lumbosacral spine done reveals no evidence of discitis no evidence of any intra-abdominal pathology to explain for his back pain. The patient did have evidence of scoliosis. The prosthetic pictures did not reveal any significant changes needed to the urinary bladder. The patient repeat blood cultures were also positive. The patient in view of this had undergone an echocardiogram and KAYY to rule out bacterial endocarditis which are both not suggestive. Patient's general condition meanwhile is improving clinically. His pain in the lower back was improved and was able to ambulate. The patient prior to discharge was stable he did have a PICC line placed. The patient's can continue with Unasyn 3 g IV piggyback every 6 hours at as an outpatient. The patient had a chest x- ray which revealed enlarging right lung lung nodule. He has an appointment to see the bandsaw operator who he has been following with regarding this. Patient does have underlying history of COPD. The patient's urinary tract infection was ruled out with a negative culture however due to the nature bacteria in the previous positive enterococcus in the urine it is felt that the patient had a UTI. Source suspected as a prostatitis. Patient to be on outpatient IV antibiotics for at least 2 weeks. Patient is being followed by Dr. Mccallum from . Final diagnoses to include 1. Enterococcus bacteremia 2. Urinary tract infection with probable prostatitis 3. COPD 4. Pulmonary nodule 5. Urinary bladder carcinoma Plan - Discharge Summary New Discharge Prescriptions: New Ampicillin-Sulbactam [Unasyn] 3 gm IVPB Q6HR #56 vial No Action Acetaminophen [Tylenol] 1,000 mg PO DAILY PRN PRN Reason: Pain Alfuzosin HCl [Alfuzosin HCl ER] 10 mg PO DAILY Aspirin [Adult Low Dose Aspirin EC] 81 mg PO DAILY Atorvastatin [Lipitor] 40 mg PO DAILY Carisoprodol [Soma] 350 mg PO DAILY PRN PRN Reason: Muscle Pain Fluticasone/Salmeterol [Advair 250-50 Diskus] 1 inhalation PO RT-BID Magnesium Oxide [Magnesium] 250 mg PO DAILY Naproxen Sodium [Aleve] 440 mg PO BID PRN PRN Reason: Pain Pseudoephedrine HCl [Sudafed] 60 mg PO DAILY PRN PRN Reason: Congestion Turmeric-Curcumin 500mg 1 tab PO DAILY Vits A,C,E/Lutein/Minerals [Ocuvite with Lutein Tablet] 1 tab PO DAILY HYDROcodone/APAP 5-325MG [Brandon 5-325] 1 tab PO Q6HR PRN #20 tab PRN Reason: Pain Ibuprofen [Motrin] 600 mg PO Q6HR PRN #30 tab PRN Reason: Fever Discharge Medication List Acetaminophen [Tylenol] 1,000 mg PO DAILY PRN 03/04/17 [History] Alfuzosin HCl [Alfuzosin HCl ER] 10 mg PO DAILY 03/04/17 [History] Aspirin [Adult Low Dose Aspirin EC] 81 mg PO DAILY 03/04/17 [History] Atorvastatin [Lipitor] 40 mg PO DAILY 03/04/17 [History] Carisoprodol [Soma] 350 mg PO DAILY PRN 03/04/17 [History] Fluticasone/Salmeterol [Advair 250-50 Diskus] 1 inhalation PO RT-BID 03/04/17 [ History] HYDROcodone/APAP 5-325MG [Brandon 5-325] 1 tab PO Q6HR PRN #20 tab 03/04/17 [Rx] Ibuprofen [Motrin] 600 mg PO Q6HR PRN #30 tab 03/04/17 [Rx] Magnesium Oxide [Magnesium] 250 mg PO DAILY 03/04/17 [History] Naproxen Sodium [Aleve] 440 mg PO BID PRN 03/04/17 [History] Pseudoephedrine HCl [Sudafed] 60 mg PO DAILY PRN 03/04/17 [History] Turmeric-Curcumin 500mg 1 tab PO DAILY 03/04/17 [History] Vits A,C,E/Lutein/Minerals [Ocuvite with Lutein Tablet] 1 tab PO DAILY 03/04/17 [History] Ampicillin-Sulbactam [Unasyn] 3 gm IVPB Q6HR #56 vial 03/09/17 [Rx] Follow up Appointment(s)/Referral(s): Alexis Mccallum MD [STAFF PHYSICIAN] - 03/28/17 10:45 am [facility], [NON-STAFF] - 1 Week [facility], [REFERRING] - 1 Week Ambulatory/Diagnostic Orders: Basic Metabolic Panel [LAB.AMB] Location: Determined By Patient Complete Blood Count w/diff [LAB.AMB] Location: Determined By Patient Miscellaneous Lab Order [LAB.AMB] Location: Determined By Patient Patient Instructions/Handouts: Peripherally Inserted Central Catheters and Midline Catheters (DC), Bacteremia (DC) Activity/Diet/Wound Care/Special Instructions: [facility] to deliver IV antibiotics by 6p today. [facility] to visit this evening for 6p dose of IV antibiotics. Discharge Disposition: HOME SELF-CARE
== END 2017-03-14 16:09 | disposition home or self-care (01) | DRG 872 ==
LOC: 3SUR 12:07
PROVIDERS: ADMIT Internal Medicine; ATTEND Internal Medicine
PROC: 02HV33Z Insertion of Infusion Device into Superior Vena Cava, Percutaneous Approach (ICD-10-PCS; principal; 2017-03-14 14:33)
PROC: B548ZZA Ultrasonography of Superior Vena Cava, Guidance (ICD-10-PCS; principal; 2017-03-14 14:33)
PROC: B5181ZA Fluoroscopy of Superior Vena Cava using Low Osmolar Contrast, Guidance (ICD-10-PCS; principal; 2017-03-14 14:33)
DX: R78.81 Bacteremia (principal); J44.9 Chronic obstructive pulmonary disease, unspecified; N39.0 Urinary tract infection, site not specified; D09.0 Carcinoma in situ of bladder; E78.5 Hyperlipidemia, unspecified; H35.30 Unspecified macular degeneration; K59.00 Constipation, unspecified; M41.9 Scoliosis, unspecified; M48.00 Spinal stenosis, site unspecified; N40.0 Benign prostatic hyperplasia without lower urinary tract symptoms; N41.9 Inflammatory disease of prostate, unspecified; Z79.82 Long term (current) use of aspirin; Z79.899 Other long term (current) drug therapy; Z82.49 Family history of ischemic heart disease and other diseases of the circulatory system; Z87.442 Personal history of urinary calculi; Z87.891 Personal history of nicotine dependence; Z96.1 Presence of intraocular lens; R91.1 Solitary pulmonary nodule; B95.2 Enterococcus as the cause of diseases classified elsewhere
CPT/HCPCS: 36415; 36569; 71020; 72133; 74177; 76937; 77001; 80053; 81003; 82550; 82553; 83605; 83735; 84100; 84134; 84484; 85025; 85027; 85610; 85730; 86140; 87040; 87077; 87086; 87186; 93005; 93306; 93312; 93320; 93325; 94640; 96365; 96375; 99284